=== PATIENT | female | born 1985 | race Caucasian/White ===

== ENCOUNTER 2021-09-01 12:09 | Emergency (ER) | payer OTHER ==
--- OUTSIDE RECORDS SUMMARY | 2021-09-01 12:12 | XMS REPORT | Continuity of Care Document ---
:1985 Author Organization [facility] t Address [address] [place] [address] Care Team Providers Name Role Phone Gregoria Shen Attending Clinician Unavailable Provider, Urgent Care Attending Clinician Unavailable Antwan Brewer Attending Clinician Antwan YOUNG Attending Clinician Unavailable EBRAHIM Attending Clinician Unavailable Ebrahinery SHAREPOINT TRAINER Attending Clinician Gregoria Shen Admitting Clinician Unavailable Payers Payer Name Policy Type Policy Number Effective Date Expiration Date S ource Problems Condition Condition Condition Status Onset Resolution Last Treating Co mments Source Name Details Category Date Date Treatment Clinician Date No known No known Disease Unive rs active active ity of problems problems [facility] Allergies, Adverse Reactions, Alerts Allergy Allergy Status Severity Reaction(s) Onset Inactive Treating Comm ents Source Name Type Date Date Clinician Penicill DA Active MO DIARRHEA [facility] [place] vicryl DA Active MO SWELLING 2020- [facility] 8-17 [facility] [place] Penicill DA Active MO [facility] ins 817 [facility] [place] Penicill DA Active MO 0 [facility] ins 3 [facility] [place] Penicill DA Active MO DIARRHEA [facility] ins 3 [facility] [place] PENICILL DRUG Active Med Unknown-Cmnt 2018-0 Un su IN G INGREDI 2-14 ity of 00:00: [place] 00 [facility] Penicill Drug Active Unknown - 2018-0 Unive rs in G Allergy See comments 2-14 ity of 00:00: [place] 00 [facility] NO KNOWN Drug Active Univers ALLERGIE Class ity of S [facility] Social History Social Habit Start Date Stop Date Quantity Comments Source ASSERTION 2020-06-03 [facility] 00:00:00 [facility] Exposure to Not sure [facility] SARS-CoV-2 (event) Medica l Branch Tobacco use and 2020-11-19 2020-11-19 Never used [facility] exposure 00:00:00 00:00:00 [facility] Sex Assigned At [birth year] [facility] 00:00:00 00:00:00 [facility] Smoking Status Start Date Stop Date Source Never smoker [facility] Medications Ordered Filled Start Stop Current Ordering Indication Dosage Frequency Signature Comments Components Source Medication Medication Date Date Medication? Clinician (SIG) Name Name No known No Univers medications [facility] No known No Univers medications [facility] Vital Signs Vital Name Observation Time Observation Value Comments Source Systolic blood 2020-11-19 16:45:00 124 mm[Hg] Univer sity [facility] Diastolic blood 2020-11-19 16:45:00 85 mm[Hg] [facility] Heart rate 2020-11-19 16:45:00 100 /min [facility] Body temperature 2020-11-19 16:45:00 37.17 Darleen [facility] Respiratory rate 2020-11-19 16:45:00 17 /min [facility] Body height 2020-11-19 16:45:00 157.5 cm [facility] Body weight 2020-11-19 16:45:00 63.504 kg [facility] BMI 2020-11-19 16:45:00 25.61 kg/m2 [facility] Oxygen saturation in 2020-11-19 16:45:00 99 /min [facility] Arterial blood by [facility] Pulse oximetry Branch Systolic blood 2020-05-10 19:53:00 128 mm[Hg] Univer sity of pressure [place] [facility] Diastolic blood 2020-05-10 19:53:00 88 mm[Hg] Unive rsity of pressure [place] [facility] Heart rate 2020-05-10 19:53:00 103 /min [facility] [place] [facility] Body temperature 2020-05-10 19:53:00 37.22 Darleen Univ ersity [facility] Respiratory rate 2020-05-10 19:53:00 18 /min Univ ersity of [facility] Body height 2020-05-10 19:53:00 157.5 cm [facility] [place] [facility] Body weight 2020-05-10 19:53:00 57.607 kg [facility] [place] [facility] BMI 2020-05-10 19:53:00 23.23 kg/m2 Universi ty of [facility] Oxygen saturation in 2020-05-10 19:53:00 98 /min University of Arterial blood by [place] [employer] gayathri Pulse oximetry Branch Systolic blood 2020-05-10 19:53:00 128 mm[Hg] Univer sity of pressure [facility] Diastolic blood 2020-05-10 19:53:00 88 mm[Hg] Unive rsity of pressure [place] [facility] Heart rate 2020-05-10 19:53:00 103 /min Universi ty of [facility] Body temperature 2020-05-10 19:53:00 37.22 Darleen Univ ersity of [place] [facility] Respiratory rate 2020-05-10 19:53:00 18 /min Univ ersity of [facility] Body height 2020-05-10 19:53:00 157.5 cm [facility]i ty [facility] [place] [facility] Body weight 2020-05-10 19:53:00 57.607 kg [facility] [place] [facility] BMI 2020-05-10 19:53:00 23.23 kg/m2 Universi ty of [facility] Oxygen saturation in 2020-05-10 19:53:00 98 /min University of Arterial blood by [employer] gayathri Pulse oximetry Branch Procedures Procedure Date / Time Performing Clinician Source Performed [id number] 2021-02-16 00:00:00 [facility] [id number] 2021-02-16 00:00:00 [facility] [id number] 2021-02-16 00:00:00 [facility] [place] COVID-19 (MOLECULAR 2020-11-19 16:53:00 Fidelia Young [facility] NUCLEIC ACID AMPLIFICATION) LAB ONLY COVID 2020-11-19 16:53:00 Fidelia Young [facility] Encounters Start End Encounter Admission Attending Care Care Encounter Source Date/Time Date/Time Type Type Clinicians Facility Department ID 2021-02-25 [facility] [id number] [facility] 14:56:00 [place], [id number] [facility] [place] 2020-10-17 Inpatient Nic [facility] PRANAV [id number] [facility] 11:58:00 [place], [id number] [facility] [place] 2020-09-06 Inpatient [facility] JUNAID [id number] [facility] 20:16:00 [id number] [facility] [place] 2021-02-16 2021-02-18 [facility] OBPP [id number] [facility] 18:05:00 13:31:00 [place], [id number] [facility] [place] 2020-11-19 2020-11-19 Urgent Provider, [facility] Urgent Care [facility] [id number] Univers 11:31:15 13:32:54 Fidelia Rueda [id number] [facility] [id number] Dao as Professio [phone] Vt [address] Office Building One 2020-11-19 2020-11-19 Outpatient R [facility] [id number] Univers 11:40:00 11:40:00 [id number] [facility] 2020-11-19 2020-11-19 Outpatient R YI [facility] [id number] Univers 11:40:00 11:40:00 [facility] 2020-05-10 2020-05-10 Outpatient R [facility] [id number] Univers 15:40:00 15:40:00 [id number] [facility] 2020-05-10 2020-05-10 Outpatient R STEVE [facility] [id number] Univers 15:40:00 15:40:00 [facility] 2020-05-10 2020-05-10 Urgent Provider, [facility] [id number] 13:40:39 14:00:39 [facility] [id number] Care [place] [id number] Professio [phone] [place] [address] Office [address] [facility] 2020-05-10 2020-05-10 Urgent Provider, Ang [facility] [id number] Univers 13:40:39 14:00:39 Care Ebrahim, [facility] [id number] ity of [place] [id number] Dao as Professio [phone] Vt dical [address] Office [facility] One 2020-05-10 2020-05-10 Outpatient R STVEE, [facility] [id number] Univers 13:40:00 13:40:00 [facility] Results Test Description Test Time Test Comments Results Result Comments Source PLACENTA THIRD TRIMESTER 2021-02-19 11:06:00 Test Item Value Reference Range Interpretation Comme nts PLACENTA RUN DATE: THIRD 02/19/21 [facility] PAGE 1 RUN TIME: 1756 TRIMESTER Specimen Inquiry RUN USER: INTERFACE (test code = PLACIII) PATIENT: CARLY OMALLEY LOC: RADHA U #: [id number] AGE/SX: 36/ F ROOM: [facility] RE02/16/21REG DR: Faraz Shen : 89 BED: A DIS: 02/18/21 STATUS: DIS IN TLOC: SPEC #: [id number] RECD: STATUS: LYNDA REEkaterina #: [id number] [place]: 02/16/21- SUBM DR: Faraz Shen MD ENTERED: 02/17/21 SP TYPE: PLACIII OTHR DR: Fina Marroquin MD ORDERED: LEVEL V SURGICA CODES: [id number] - PLACENTA, NOS COPIES TO: Fina Lira MD [address] [facility] [address] [place] [address] Faraz Shen MD [address] [facility] # [id number] [place], [place] [id number] PROCEDURES: LEVEL V SURGICA (Incomplete) TISSUES: PLACENTA, NOS - PLACENT A CLINICAL HISTORY 36 year old, 38.6 weeks, vaginal delivery, chorioamnionitis (wpd) FINAL DIAGNOSIS Placenta, vaginal delivery: - placenta with mature third trimester villo us morphology, 490 gms (approximately 50th percentile) - rare avascular hyalinized vi lli, suggestive of thrombotic vasculopathy - subchorionic and perivillous fibrin depositio n - acute chorionic vasculitis - membranes: acute chorioamnionitis - tr ivascular umbilical cord: acute vasculitis CPT: 04342 ssa/wpd CONTINUED ON NEXT PAGE RUN DATE: 02/19/21 [facility] PAGE 2 RUN TIME: 1755 Specimen Inquiry RUN USER: INTERFACE SPEC #: [id number] PATIENT: CARLY OMALLEY #[id number] (Continued) GROSS DESCRIPTION The specimen was received in a container, labeled with the patient's name, unit number and designated "placenta". The following attributes are observed: Cord insertion: 5 cm from m argin Cord length: 40 cm Number of vessels: 3 Cord color: Garcia-white Other cord findings: None surface findings: Blue-purple, wrinkled, glistening Vasculature: Unremarkable vasculature Membranes rupture site: 1 cm to margin Membrane color: Garcia-pink Other m embrane findings: Semi-translucent The trimmed placental weight: 490 gm Disk measureme nt: 19 x 16 x 3 cm Accessory lobes: 5 x 5 x 1 cm Maternal surface: Lobulated and focally disrupted, completeness charisse ot be determined Parenchyma: Red-brown and spongy Parenchyma lesions: None Cassettes: A1 through A4 tano/dolores 02/17/21 Signed Theodora Hurley 02/19/21 1106 END OF R EPORT CBC W/AUTO [id number] 08:15:00 Test Item Value Reference Range Interpretation Comments WHITE BLOOD CELL (test code = WBC) 15.4 K/mm3 6.5-12.3 H RED BLOOD CELL (test code = RBC) 3.40 M/mm3 3.51-4.69 L HEMOGLOBIN (test code = HGB) 9.4 g/dL 10.1-13.8 L HEMATOCRIT (test code = HCT) 29.8 % 32.5-41.8 L MEAN CELL VOLUME (test code = MCV) 87.6 fL 84.6-96.6 N MEAN CELL HGB (test code = MCH) 27.6 pg 27.3-33.9 N MEAN CELL HGB CONCETRATION (test 31.5 gm/dL 32.0-34.2 L code = MCHC) RED CELL DISTRIBUTION WIDTH (test 15.4 % 12.2-16.3 N code = RDW) PLATELET COUNT (test code = PLT) 220 K/mm3 134-363 N MEAN PLATELET VOLUME (test code = 9.6 fL 9.2-12.7 N MPV) NEUTROPHIL % (test code = NT%) 74.2 % 57.9-77.3 N LYMPHOCYTE % (test code = LY%) 14.0 % 14.5-29.7 L MONOCYTE % (test code = MO%) 10.0 % 3.6-10.2 N EOSINOPHIL % (test code = EO%) 0.6 % 0.0-3.0 N BASOPHIL % (test code = BA%) 0.3 % 0.1-0.9 N NEUTROPHIL # (test code = NT#) 11.5 K/mm3 LYMPHOCYTE # (test code = LY#) 2.2 K/mm3 MONOCYTE # (test code = MO#) 1.5 K/mm3 EOSINOPHIL # (test code = EO#) 0.10 K/mm3 BASOPHIL # (test code = BA#) 0.0 K/mm3 RBC MORPHOLOGY REQUIRED (test code NORMAL NORMAL = RBCM) PLATELET MORPHOLOGY REQUIRED (test NORMAL NORMAL code = PLTMR) PROTHROMBIN [id number] 23:23:00 Test Item Value Reference Range Interpretation Comments PROTHROMBIN TIME PATIENT (test code 12.0 secs 10.1-12.3 N = PTP) IS PATIENT ON ANTICOAGULANTS ? NINTERNATIONAL NORMAL [id number] 23:23:00 Test Item Value Reference Range Interpretation Comments INTERNATIONAL NORMAL 1.08 The INR is to be used RATIO (test code = INR) only for monitoring oral anticoagulantth erapy. INDICATION INR VALUE 1. Prophylaxis inc luding high risk domínguez rgery 2.0 - 2.52. Deep venous thr ombosis. Pulmonary em bolism. Atrial fibrilla tion or bioprostheti c heart valves 2.0 - 3.03. Mechanical hear t valves or recurren t systemic emboli sm. 3.0 - 3.5 IS PATIENT ON ANTICOAGULANTS ? NTHROMBOPLASTIN TIME [id number] 23:23:00 Test Item Value Reference Range Interpretation Comments THROMBOPLASTIN TIME PARTIAL (test 31.9 secs 22-38 N code = PTT) IS PATIENT ON ANTICOAGULANTS ? NCBC W/AUTO [id number] 23:15:00 Test Item Value Reference Range Interpretation Comments WHITE BLOOD CELL (test code = WBC) 14.4 K/mm3 6.5-12.3 H RED BLOOD CELL (test code = RBC) 3.73 M/mm3 3.51-4.69 N HEMOGLOBIN (test code = HGB) 10.3 g/dL 10.1-13.8 N HEMATOCRIT (test code = HCT) 31.9 % 32.5-41.8 L MEAN CELL VOLUME (test code = MCV) 85.5 fL 84.6-96.6 N MEAN CELL HGB (test code = MCH) 27.6 pg 27.3-33.9 N MEAN CELL HGB CONCETRATION (test 32.3 gm/dL 32.0-34.2 N code = MCHC) RED CELL DISTRIBUTION WIDTH (test 15.4 % 12.2-16.3 N code = RDW) PLATELET COUNT (test code = PLT) 239 K/mm3 134-363 N MEAN PLATELET VOLUME (test code = 9.6 fL 9.2-12.7 N MPV) NEUTROPHIL % (test code = NT%) 79.3 % 57.9-77.3 H LYMPHOCYTE % (test code = LY%) 10.2 % 14.5-29.7 L MONOCYTE % (test code = MO%) 7.5 % 3.6-10.2 N EOSINOPHIL % (test code = EO%) 0.8 % 0.0-3.0 N BASOPHIL % (test code = BA%) 0.3 % 0.1-0.9 N NEUTROPHIL # (test code = NT#) 11.4 K/mm3 LYMPHOCYTE # (test code = LY#) 1.5 K/mm3 MONOCYTE # (test code = MO#) 1.1 K/mm3 EOSINOPHIL # (test code = EO#) 0.12 K/mm3 BASOPHIL # (test code = BA#) 0.0 K/mm3 RBC MORPHOLOGY REQUIRED (test code NORMAL NORMAL = RBCM) PLATELET MORPHOLOGY REQUIRED (test NORMAL NORMAL code = PLTMR) UA RFLX MICR CULT IF [id number] 23:13:00 Test Item Value Reference Range Interpretation Comments UA COLOR (test code = COLU) YELLOW YELLOW UA APPEARANCE (test code = CLEAR CLEAR APPU) UA GLUCOSE DIPSTICK (test code NEGATIVE NEG = DGLUU) UA BILIRUBIN DIPSTICK (test NEGATIVE NEG code = BILU) UA KETONE DIPSTICK (test code NEGATIVE NEG = KETU) UA SPECIFIC GRAVITY (test code 1.015 1.001-1.035 N = SGU) UA BLOOD DIPSTICK (test code = 1+ NEG A LIZ) UA PH DIPSTICK (test code = 7.0 5-9 NATHALY) UA PROTEIN DIPSTICK (test code NEGATIVE NEG = PROU) UA UROBILINIOGEN DIPSTICK NEGATIVE mg/dL NEG (test code = URO) UA NITRITE DIPSTICK (test code NEG NEG = ARBEN) UA LEUKOCYTE ESTERASE DIPSTICK NEG NEG (test code = LEUU) UA WBC (test code = WBCU) 0-2 #/hpf NONE SEEN UA RBC (test code = RBCU) 6-10 #/hpf NONE SEEN A UA EPITHELIAL CELLS (test code RARE #/HPF RARE-FEW = EPIU) UA BACTERIA (test code = BACU) RARE /HPF RARE-FEW UA MUCUS (test code = MUCU) RARE NONE SEEN Indication for culture: Temperature > 100.4 FSpecimen Description: CATHETERLACTIC [id number] 23:12:00 Test Item Value Reference Range Interpretation Comments LACTIC ACID (test code = LACT) 1.0 MMOL/L 0.5-2.2 N COMPREHENSIVE METABOLIC [id number] 23:07:00 Test Item Value Reference Range Interpretation Comments SODIUM (test code = NA) 138 mEq/L 135-145 N POTASSIUM (test code = K) 4.1 mEq/L 3.5-5.0 N CHLORIDE (test code = CL) 106 mEq/L 100-115 N CARBON DIOXIDE (test code = CO2) 24 mEq/L 22-31 N ANION GAP (test code = GAP) 12.10 10-20 N GLUCOSE (test code = GLU) 100 mg/dL 65-110 N BLOOD UREA NITROGEN (test code = 9 mg/dL 7-18 N BUN) GLOMERULAR FILTRATION RATE (test 114 ml/min >60 N code = GFR) CREATININE (test code = CREAT) 0.6 mg/dL 0.5-1.0 N TOTAL PROTEIN (test code = PROT) 5.6 gm/dL 6.3-8.2 L ALBUMIN (test code = ALB) 2.5 gm/dL 3.4-4.8 L CALCIUM (test code = CA) 8.0 mg/dL 8.4-10.2 L BILIRUBIN TOTAL (test code = 0.2 mg/dL 0.2-1.0 N BILT) SGOT/AST (test code = AST) 17 units/L 15-37 N SGPT/ALT (test code = ALT) 13 units/L 12-78 N ALKALINE PHOSPHATASE TOTAL (test 937 units/L 46-116 H code = ALKP) AG HEPATITIS B [id number] 20:10:00 Test Item Value Reference Range Interpretation Comments AG HEPATITIS B SURFACE (test code NONREACTIVE NONREACTIVE = HBSAG) AB HEPATITIS C [id number] 20:10:00 Test Item Value Reference Range Interpretation Comments AB HEPATITIS C (test code = NONREACTIVE NONREACTIVE HCVAB) SIGNAL TO CUTOFF (test code = 0.02 <0.80 N CUTOFF) AB [id number] 20:10:00 Test Item Value Reference Range Interpretation Comments AB TREPONEMA (test code = TREPAB) NONREACTIVE NONREACTIVE AB HIV 1 20:10:00 Test Item Value Reference Range Interpretation Comments AB HIV 1 2 (test NONREACTIVE NONREACTIVE Done by [facility] code = [id number]) 4th Gen HIV Ag/Ab Combo Screen AG HEPATITIS B [id number] 19:51:00 Test Item Value Reference Range Interpretation Comments AG HEPATITIS B SURFACE (test code NONREACTIVE NONREACTIVE = HBSAG) AB HEPATITIS C [id number] 19:51:00 Test Item Value Reference Range Interpretation Comments AB HEPATITIS C (test code = HCVAB) NONREACTIVE SIGNAL TO CUTOFF (test code = CUTOFF) <0.80 AB [id number] 19:51:00 Test Item Value Reference Range Interpretation Comments AB TREPONEMA (test code = TREPAB) NONREACTIVE NONREACTIVE AB HIV 1 19:51:00 Test Item Value Reference Range Interpretation Comments AB HIV 1 2 (test code = [id number]) NONREACTIVE CBC W/AUTO [id number] 18:54:00 Test Item Value Reference Range Interpretation Comments WHITE BLOOD CELL (test code = WBC) 14.6 K/mm3 6.5-12.3 H RED BLOOD CELL (test code = RBC) 4.02 M/mm3 3.51-4.69 N HEMOGLOBIN (test code = HGB) 11.2 g/dL 10.1-13.8 N HEMATOCRIT (test code = HCT) 34.3 % 32.5-41.8 N MEAN CELL VOLUME (test code = MCV) 85.3 fL 84.6-96.6 N MEAN CELL HGB (test code = MCH) 27.9 pg 27.3-33.9 N MEAN CELL HGB CONCETRATION (test 32.7 gm/dL 32.0-34.2 N code = MCHC) RED CELL DISTRIBUTION WIDTH (test 15.2 % 12.2-16.3 N code = RDW) PLATELET COUNT (test code = PLT) 263 K/mm3 134-363 N MEAN PLATELET VOLUME (test code = 9.5 fL 9.2-12.7 N MPV) NEUTROPHIL % (test code = NT%) 74.7 % 57.9-77.3 N LYMPHOCYTE % (test code = LY%) 12.7 % 14.5-29.7 L MONOCYTE % (test code = MO%) 9.6 % 3.6-10.2 N EOSINOPHIL % (test code = EO%) 1.2 % 0.0-3.0 N BASOPHIL % (test code = BA%) 0.3 % 0.1-0.9 N NEUTROPHIL # (test code = NT#) 10.9 K/mm3 LYMPHOCYTE # (test code = LY#) 1.9 K/mm3 MONOCYTE # (test code = MO#) 1.4 K/mm3 EOSINOPHIL # (test code = EO#) 0.17 K/mm3 BASOPHIL # (test code = BA#) 0.0 K/mm3 RBC MORPHOLOGY REQUIRED (test code NORMAL NORMAL = RBCM) PLATELET MORPHOLOGY REQUIRED (test NORMAL NORMAL code = PLTMR) COVID 19 Asymptomatic IH [id number] 18:34:00 Test Item Value Reference Range Interpretation Comments COVID 19 NEGATIVE NEGATIVE This test has b een Asymptomatic IH AG authorize d only for the (test code = detection ofpro teins from COVNONPUIAG) SARS-CoV-2, not for any other viruses orpathogens. N egative results should be treated as presumptive andconfirmed wi th a molecular assay , if necessary for patientmanageme nt. Negative result s do not rule out COVID- 19 andshould not b e used as the sole basis for treatment orpat ient management deci sions, including infec tion controldecision s. Negative result s should be considered i n thecontext of a patient's recent exposure s, history and thepresence of clinical signs and symptoms consis tent withCOVID-19. T his test has not been FD A cleared or approved; th e test hasbeen authori zed by FDA under an Emerge ncy Use Authorization(E UA) for use by aspen mari certified under the CLIA thatmeet the re quirements to perform mode rate, high or waivedcomple xity tests. This carmen t is authorized for use at thePoint of Car e (POC), i.e., in patien t care settingsoperati ng under a CLIA Certificat e of Waiver, Certifi frankie ofCompliance, o r Certificate of Accreditation. This test is only authori helen for the duration of thedeclaration that circumstances e xist justifying theauthorizatio n of emergency use o f in vitro diagnostic test sfor detection and/o r diagnosis of CO VID-19 under Upzboai97 4(b)(1) of the Act, 21 U.S .C. 360bbb-3(b)(1), unless theauthorizatio n is terminated or r evoked sooner. LAB ONLY COVID [id number] 23:38:30COVID DMT InterpretationInterpretation/Recommendations: Molecular NAAT Tests for Active Infection with the SARS-CoV-2 Virus: The patient has currently tested negative for the SARS-CoV-2 virus that causes COVID-19 illness. This most likely indicates that the patient does not have an active infection with the SARS-CoV-2 virus. However, infection is not completely ruled out as the false negative rate for molecular NAAT testing using a nasopharyngeal sample can be up to 30%, mostly dependent on the timing of sample collection in relation to illness onset and any deficiencies in sampling techniques. If the patient has symptoms concerning for COVID-19 illness, a repeat NAAT test (PCR, Rapid ID Now, etc.) should be performed, at which time the SARS-CoV-2 virus - if present - may have reached a detectable viral load (usually peaking by the end of the first week of symptoms). Tests for IgM and/or IgGAntibodies to the SARS-CoV-2 Virus: If the patient develops COVID-19 illness in the future, testingfor IgM and IgG antibodies approximately 3 weeks after illness onset will likely indicate if the patient has produced antibodies to the SARS-CoV-2 virus. However, some patients may take longer to develop detectable antibodies, while some patients who were infected with SARS-CoV-2 may never develop antibodies. While antibodies to SARS-CoV-2 may provide some degree of immunity, at this time the strength and duration of the antibody response is unknown. Interpretation Result Comments:These interpretation comments are based upon all COVID-19 testing the patient has had at [facility], including molecular NAAT testing (more commonly known as PCR testing and Rapid ID Now testing) and antibody testing. It does not take into account any testing that a patient has had outside of the [facility] medical record. [facility] LABORATORY SERVICESCOVID Resu ingHGVS-XyE-0 NAAT (no units) ? ? Date ? Value ? 11/19/2020 ? Not Detected ? ? ? 05/10/2020 ? Not Detected ? [facility]Un[facility] COVID-19 (MOLECULAR TESTING NUCLEIC ACID AMPLIFICATION)2020-11-20 00:41:37 Test Item Value Reference Range Interpretation Comments SARS-CoV-2 NAAT (test Not Detected Not Detected code = 76058-4) KATARZYNA (test code = KATARZYNA) [employer] Fusion SARS-CoV-2 Assay is a real-time RT-PCR test intended for the qualitative detection of RNA from SARS-CoV-2 from nasopharyngeal ([employer]) specimens. It is used under Emergency Use Authorization (EUA) by FDA. A positive result is indicative of the presence of SARS-CoV-2 RNA. ?Clinical correlation with patient history and other diagnostic information is necessary to determine patient infection status. A negative (Not Detected) result does not preclude SARS-CoV-2 infection. Clinical correlation with patient history and other diagnostic information should be used in patient management decisions. Invalid: Please collect a new specimen for repeat patient testing if clinically indicated. Lab Interpretation Normal (test code = 02976-1) [facility] [id number] 13:10:00 Test Item Value Reference Range Interpretation Comments SODIUM (test code = NA) 132 mEq/L 135-145 L POTASSIUM (test code = K) 3.8 mEq/L 3.5-5.0 N CHLORIDE (test code = CL) 100 mEq/L 100-115 N CARBON DIOXIDE (test code = CO2) 24 mEq/L 22-31 N ANION GAP (test code = GAP) 11.50 10-20 N GLUCOSE (test code = GLU) 77 mg/dL 65-110 N BLOOD UREA NITROGEN (test code = 11 mg/dL 7-18 N BUN) GLOMERULAR FILTRATION RATE (test 142 ml/min >60 N code = GFR) CREATININE (test code = CREAT) 0.5 mg/dL 0.5-1.0 N TOTAL PROTEIN (test code = PROT) 6.4 gm/dL 6.3-8.2 N ALBUMIN (test code = ALB) 2.9 gm/dL 3.4-4.8 L CALCIUM (test code = CA) 8.1 mg/dL 8.4-10.2 L BILIRUBIN TOTAL (test code = BILT) 0.4 mg/dL 0.2-1.0 N SGOT/AST (test code = AST) 19 units/L 15-37 N SGPT/ALT (test code = ALT) 17 units/L 12-78 N ALKALINE PHOSPHATASE TOTAL (test 78 units/L 46-116 N code = ALKP) CBC W/AUTO [id number] 12:55:00 Test Item Value Reference Range Interpretation Comments WHITE BLOOD CELL (test code = WBC) 10.8 K/mm3 6.5-12.3 N RED BLOOD CELL (test code = RBC) 4.11 M/mm3 3.51-4.69 N HEMOGLOBIN (test code = HGB) 12.2 g/dL 10.1-13.8 N HEMATOCRIT (test code = HCT) 37.1 % 32.5-41.8 N MEAN CELL VOLUME (test code = MCV) 90.3 fL 84.6-96.6 N MEAN CELL HGB (test code = MCH) 29.7 pg 27.3-33.9 N MEAN CELL HGB CONCETRATION (test 32.9 gm/dL 32.0-34.2 N code = MCHC) RED CELL DISTRIBUTION WIDTH (test 13.5 % 12.2-16.3 N code = RDW) PLATELET COUNT (test code = PLT) 273 K/mm3 134-363 N MEAN PLATELET VOLUME (test code = 9.3 fL 9.2-12.7 N MPV) NEUTROPHIL % (test code = NT%) 88.8 % 57.9-77.3 H LYMPHOCYTE % (test code = LY%) 5.6 % 14.5-29.7 L MONOCYTE % (test code = MO%) 4.4 % 3.6-10.2 N EOSINOPHIL % (test code = EO%) 0.5 % 0.0-3.0 N BASOPHIL % (test code = BA%) 0.2 % 0.1-0.9 N NEUTROPHIL # (test code = NT#) 9.6 K/mm3 LYMPHOCYTE # (test code = LY#) 0.6 K/mm3 MONOCYTE # (test code = MO#) 0.5 K/mm3 EOSINOPHIL # (test code = EO#) 0.05 K/mm3 BASOPHIL # (test code = BA#) 0.0 K/mm3 RBC MORPHOLOGY REQUIRED (test code NORMAL NORMAL = RBCM) PLATELET MORPHOLOGY REQUIRED (test NORMAL NORMAL code = PLTMR) UA RFLX MICR CULT IF [id number] 22:05:00 Test Item Value Reference Range Interpretation Comments UA COLOR (test code = COLU) YELLOW YELLOW UA APPEARANCE (test code = CLEAR CLEAR APPU) UA GLUCOSE DIPSTICK (test 3+ NEG A code = DGLUU) UA BILIRUBIN DIPSTICK (test NEGATIVE NEG code = BILU) UA KETONE DIPSTICK (test code 1+ NEG A = KETU) UA SPECIFIC GRAVITY (test 1.009 1.001-1.035 N code = SGU) UA BLOOD DIPSTICK (test code NEG NEG = LIZ) UA PH DIPSTICK (test code = 6.0 5-9 NATHALY) UA PROTEIN DIPSTICK (test NEGATIVE NEG code = PROU) UA UROBILINIOGEN DIPSTICK NEGATIVE mg/dL NEG (test code = URO) UA NITRITE DIPSTICK (test NEG NEG code = ARBEN) UA LEUKOCYTE ESTERASE NEG NEG DIPSTICK (test code = LEUU) UA WBC (test code = WBCU) 0-2 #/hpf NONE SEEN UA RBC (test code = RBCU) NONE SEEN #/hpf NONE SEEN UA EPITHELIAL CELLS (test RARE #/HPF RARE-FEW code = EPIU) UA BACTERIA (test code = RARE /HPF RARE-FEW BACU) UA MUCUS (test code = MUCU) RARE NONE SEEN Indication for culture: Dysuria/FrequencySpecimen Description: CLEAN CATCH HCG [id number] 21:29:00 Test Item Value Reference Range Interpretation Comments HCG SERUM (test 17591 INTERPRETATI ON:VALUES BETWEEN code = HCG) 15-20 milliInte rnational units/mL NEED T O BERETESTED WITHIN 48 HOURS . All units for these ranges ar e in milliInternatio nalunits/mL0-1 WK AFTER CONCEP TION 0-50 1-2 W KS AFTER CONCEPTION 40-3002-3 WKS A FTER CONCEPTION 100-1 ,0003-4 WKS AFTER CONCEPTIO N 500-6,0001-2 MO NTHS AFTER CONCEPTION 5,000-200,0002- 3 MONTHS AFTER CONCEPTION 10,000-100,0002 ND TRIMESTER 3,000-50,0003RD TRIMESTER 1 ,000-50,000 SPECIMENS WITH AN HCG LEVEL FROM 0-6 milliInternatio nalunits/mL SHOULD BE CONSI DERED NEGATIVE COMPREHENSIVE METABOLIC [id number] 21:14:00 Test Item Value Reference Range Interpretation Comments SODIUM (test code = NA) 135 mEq/L 135-145 N POTASSIUM (test code = K) 3.8 mEq/L 3.5-5.0 N CHLORIDE (test code = CL) 100 mEq/L 100-115 N CARBON DIOXIDE (test code = CO2) 22 mEq/L 22-31 N ANION GAP (test code = GAP) 16.70 10-20 N GLUCOSE (test code = GLU) 85 mg/dL 65-110 N BLOOD UREA NITROGEN (test code = 9 mg/dL 7-18 N BUN) GLOMERULAR FILTRATION RATE (test 115 ml/min >60 N code = GFR) CREATININE (test code = CREAT) 0.6 mg/dL 0.5-1.0 N TOTAL PROTEIN (test code = PROT) 7.4 gm/dL 6.3-8.2 N ALBUMIN (test code = ALB) 3.4 gm/dL 3.4-4.8 N CALCIUM (test code = CA) 8.5 mg/dL 8.4-10.2 N BILIRUBIN TOTAL (test code = BILT) 0.4 mg/dL 0.2-1.0 N SGOT/AST (test code = AST) 20 units/L 15-37 N SGPT/ALT (test code = ALT) 30 units/L 12-78 N ALKALINE PHOSPHATASE TOTAL (test 46 units/L 46-116 N code = ALKP) CBC W/AUTO [id number] 20:47:00 Test Item Value Reference Range Interpretation Comments WHITE BLOOD CELL (test code = WBC) 8.7 K/mm3 6.5-12.3 N RED BLOOD CELL (test code = RBC) 4.47 M/mm3 3.51-4.69 N HEMOGLOBIN (test code = HGB) 13.5 g/dL 10.1-13.8 N HEMATOCRIT (test code = HCT) 39.6 % 32.5-41.8 N MEAN CELL VOLUME (test code = MCV) 88.6 fL 84.6-96.6 N MEAN CELL HGB (test code = MCH) 30.2 pg 27.3-33.9 N MEAN CELL HGB CONCETRATION (test 34.1 gm/dL 32.0-34.2 N code = MCHC) RED CELL DISTRIBUTION WIDTH (test 13.1 % 12.2-16.3 N code = RDW) PLATELET COUNT (test code = PLT) 274 K/mm3 134-363 N MEAN PLATELET VOLUME (test code = 9.2 fL 9.2-12.7 N MPV) NEUTROPHIL % (test code = NT%) 88.2 % 57.9-77.3 H LYMPHOCYTE % (test code = LY%) 6.7 % 14.5-29.7 L MONOCYTE % (test code = MO%) 4.3 % 3.6-10.2 N EOSINOPHIL % (test code = EO%) 0.3 % 0.0-3.0 N BASOPHIL % (test code = BA%) 0.2 % 0.1-0.9 N NEUTROPHIL # (test code = NT#) 7.6 K/mm3 LYMPHOCYTE # (test code = LY#) 0.6 K/mm3 MONOCYTE # (test code = MO#) 0.4 K/mm3 EOSINOPHIL # (test code = EO#) 0.03 K/mm3 BASOPHIL # (test code = BA#) 0.0 K/mm3 PLATELET MORPHOLOGY REQUIRED (test NORMAL NORMAL code = PLTMR) PLACENTA THIRD [id number] 17:53:00 RUN DATE: 09/05/18 [facility] PAGE 1 RUN TIME: 1922 Specimen Inquiry RUN USER: INTERFACE PATIENT: CARLY OMALLEY [facility] #: [id number] AGE/SX: ROOM: 2007 RE09/02/18REG DR: Faraz Shen : 89 BED: A DIS: 09/05/18 STATUS: DIS IN TLOC: SPEC #: [id number] RECD: 09/03/18 STATUS: SOUJuan C REQ #: [id number] MILTON: 09/03/18- SUBM DR: Faraz Shen MD ENTERED: 09/03/18 SP TYPE: PLACIII OTHR DR: Tonay Coronel MD ORDERED: LEVEL V SURGICA CODES: [id number] - PLACENTA, NOS COPIES TO: Tonya Coronel MD [address] [place] [address] Faraz Shen MD [address] [facility] [address] [place], [place] [id number] PROCEDURES: LEVEL V SURGICA(Incomplete) TISSUES: PLACENTA, NOS - PLACENTA CLINICAL HISTORY 33 year old, IUP @ 39.5 weeks, [id number], vaginal delivery, non-reassuring monitoring, meconium (kr) FINAL DIAGNOSIS Placenta, 39.5 weeks gestational age, vaginal delivery: - third trimesterplacenta, 360 gms (5th percentile) with focal chronic basal villitis (low-grade) and meconium macrophages within membranes - membranes and trivascular umbilical cord free of inflammation Tissue code 1 CPT code(s): 18081 [facility] 09/05/18 CONTINUED ON NEXT PAGE RUN DATE: 09/05/18 [facility] PAGE 2 RUN TIME: 1922 Specimen Inquiry RUN USER: INTERFACE SPEC #: [id number] PATIENT: LENORACARLY #[id number] (Continued) GROSS DESCRIPTION The specimen was received in a container, labeled with the patient's name, unit number and designated "placenta". The following attributes are observed: Cord insertion: 7 cm from margin Cord length: 22 cm Number of vessels: 3 Cord color: Garcia Other cord findings: Slightly edematous surface findings: Steel blue, wrinkled, glistening Vasculature: Displays unremarkable blood vasculature Membranes rupture site: 3 cm to margin Membrane color: Garcia Other membrane findings: Slightly thickened The trimmed placental weight: 360 gm Disk measurement: 16.5 cm in greatest dimension Accessory lobes: None Maternal surface: Lobulated and intact Parenchyma: Red, beefy, and spongy with peripheral fibrosis and calcifications Parenchyma lesions: There is no definite meconium staining. Cassettes: A through D jm/wpd 09/04/18 @ 2790 MICROSCOPIC DESCRIPTION The trivascular umbilical cord and membranes are free of inflammation. There is amniotic epithelial hyperplasia and several meconium macrophages are seen. The placental villi have a third trimester morphology and there is focal basal villitis. No decidual vasculopathy identified. [facility] 09/05/18--------- --- Signed Vandana South MD 09/05/18 1753 END OF REPORT HGB [id number] 07:57:00 Test Item Value Reference Range Interpretation Comments HEMOGLOBIN (test code = HGB) 11.5 g/dL 10.7-13.9 N HEMATOCRIT (test code = HCT) 35.6 % 32.1-42.1 N CAPILLARY BLOOD [id number] 03:24:00 Test Item Value Reference Range Interpretation Comments CAPILLARY BLOOD GAS PH (test code 7.333 7.35-7.45 L = PHC) CAPILLARY BLOOD GAS PCO2 (test 38.3 mmHg code = PCO2C) CAPILLARY BLOOD GAS PO2 (test code 29.7 mmHg = PO2C) CBG HCO3 (test code = HCO3C) 19.9 meq/L CBG BASE EXCESS (test code = BEC) -5.4 CBG O2 SATURATION (test code = 52.7 % SATC) CAPILLARY BLOOD GAS TYPE (test CBLV code = TYPEC) CAPILLARY BLOOD GAS FIO2 (test 21.0 % code = FIO2C) CAPILLARY BLOOD [id number] 03:24:00 Test Item Value Reference Range Interpretation Comments CAPILLARY BLOOD GAS PH (test code 7.089 7.35-7.45 LL = PHC) CAPILLARY BLOOD GAS PCO2 (test 80.1 mmHg code = PCO2C) CAPILLARY BLOOD GAS PO2 (test code 20.1 mmHg = PO2C) CBG HCO3 (test code = HCO3C) 23.7 meq/L CBG BASE EXCESS (test code = BEC) -8.0 CBG O2 SATURATION (test code = 18.9 % SATC) CAPILLARY BLOOD GAS TYPE (test CBLA code = TYPEC) CAPILLARY BLOOD GAS FIO2 (test 21.0 % code = FIO2C) AG HEPATITIS B [id number] 11:58:00 Test Item Value Reference Range Interpretation Comments AG HEPATITIS B SURFACE (test code NONREACTIVE NONREACTIVE = HBSAG) AB HEPATITIS C [id number] 11:58:00 Test Item Value Reference Range Interpretation Comments AB HEPATITIS C (test code = NONREACTIVE NONREACTIVE HCVAB) SIGNAL TO CUTOFF (test code = 0.04 <0.80 N CUTOFF) AB [id number] 11:58:00 Test Item Value Reference Range Interpretation Comments AB TREPONEMA (test code = TREPAB) NONREACTIVE NONREACTIVE AG HEPATITIS B [id number] 11:31:00 Test Item Value Reference Range Interpretation Comments AG HEPATITIS B SURFACE (test code NONREACTIVE NONREACTIVE = HBSAG) AB HEPATITIS C [id number] 11:31:00 Test Item Value Reference Range Interpretation Comments AB HEPATITIS C (test code = HCVAB) NONREACTIVE SIGNAL TO CUTOFF (test code = CUTOFF) <0.80 AB [id number] 11:31:00 Test Item Value Reference Range Interpretation Comments AB TREPONEMA (test code = TREPAB) NONREACTIVE NONREACTIVE CBC W/AUTO [id number] 10:49:00 Test Item Value Reference Range Interpretation Comments WHITE BLOOD CELL (test code = WBC) 10.2 K/mm3 6.6-12.1 N RED BLOOD CELL (test code = RBC) 4.13 M/mm3 3.45-5.01 N HEMOGLOBIN (test code = HGB) 12.0 g/dL 10.7-13.9 N HEMATOCRIT (test code = HCT) 37.5 % 32.1-42.1 N MEAN CELL VOLUME (test code = MCV) 91 fL 84.1-94.8 N MEAN CELL HGB (test code = MCH) 29.1 pg 27-35 N MEAN CELL HGB CONCETRATION (test 32.0 gm/dL 32.2-34.1 L code = MCHC) RED CELL DISTRIBUTION WIDTH (test 15.2 % 12.4-16.5 N code = RDW) PLATELET COUNT (test code = PLT) 280 K/mm3 133-385 N IMMATURE PLATELET FRACTION (test 0.0 % 0.0-10.8 N code = IPF) MEAN PLATELET VOLUME (test code = 10.2 fl 9.1-12.7 N MPV) NEUTROPHIL % (test code = NT%) 73.9 % 56.5-79.4 N LYMPHOCYTE % (test code = LY%) 15.5 % 14.3-34.3 N MONOCYTE % (test code = MO%) 7.8 % 5.1-10.4 N EOSINOPHIL % (test code = EO%) 1.0 % 0.1-3.0 N BASOPHIL % (test code = BA%) 0.3 % 0.1-1.0 N NEUTROPHIL # (test code = NT#) 7.6 K/mm3 LYMPHOCYTE # (test code = LY#) 1.6 K/mm3 MONOCYTE # (test code = MO#) 0.8 K/mm3 EOSINOPHIL # (test code = EO#) 0.10 K/mm3 BASOPHIL # (test code = BA#) 0.0 K/mm3 RBC MORPHOLOGY REQUIRED (test code NORMAL NORMAL = RBCM) PLATELET MORPHOLOGY REQUIRED (test NORMAL NORMAL code = PLTMR)
[2021-09-01 13:35] LABS: Urine Blood Negative (Negative); Urine Glucose Negative (Negative); Urine Protein Negative (Negative); Urine Specific Gravity 1.015 (1.005-1.030)
[2021-09-01] MEDS ORDERED: DIAZEPAM 5 MG TABLET ONE (13:41)
[2021-09-01 13:52] LABS: Urine Specific Gravity/Preg 1.015 (1.005-1.030)
[2021-09-01 13:59] LABS: Protime INR 0.95
[2021-09-01 14:00] LABS: Hematocrit 39.2 % (36.0-45.0); Lymphocytes % 30.1 % (15.3-44.8); MPV 7.5 fL (7.6-11.3); RBC Red Blood Cell Count 4.53 M/uL (3.86-4.86)
--- NOTE | 2021-09-01 14:01 | RAD REPORT ---
EXAM DESCRIPTION: RAD - Chest Single View - 09/01/2021 1:55 pm CLINICAL HISTORY: CHEST PAIN Chest pain. COMPARISON: Abdomen 1 View (KUB) dated 01/13/2020; Abdomen 1 View (KUB) dated 01/30/2017; Chest Pa And Lat (2 Views) dated 02/29/2016; Abdomen 1 View (KUB) dated 02/05/2016 FINDINGS: Portable technique limits examination quality. The lungs are grossly clear. The heart is normal in size. No displaced fractures. IMPRESSION: No acute intrathoracic process suspected.
[2021-09-01 14:14] LABS: ALT/SGPT 19 U/L (12-78); AST/SGOT 15 U/L (15-37); Albumin 3.6 g/dL (3.4-5.0); Alkaline Phosphatase 43 U/L (45-117); BUN Blood Urea Nitrogen 13 mg/dL (7-18); Bicarbonate 28 mmol/L (21-32); Bilirubin Total 0.2 mg/dL (0.2-1.0); Glucose Level 91 mg/dL (74-106); Magnesium 2.2 mg/dL (1.8-2.4); NT PRO-BNP 77 pg/mL (<125); Potassium 4.2 mmol/L (3.5-5.1); Protein, Total 7.7 g/dL (6.4-8.2); Sodium Level 137 mmol/L (136-145)
[2021-09-01 14:19] LABS: Bilirubin Direct < 0.1 mg/dL (0-0.2)
--- NOTE | 2021-09-01 15:11 | EDPHYS ---
Physician Documentation [facility] Name: Rebecca Cooley Age: 36 yrs Sex: Female : 1985 Arrival Date: 09/01/2021 Time: 12:12 Bed 24 Private MD: ED Physician Chandler Canales HPI: 09/01 14:41 This 36 yrs old Female presents to ER via Ambulatory with complaints of Chest Pain. pm1 14:41 The patient or guardian reports chest pain that is located primarily in the mid-sternal pm1 area. The pain does not radiate. 14:41 Associated signs and symptoms: Pertinent negatives: abdominal pain, cough, dizziness, pm1 headache, nausea, shortness of breath, vomiting. The chest pain is described as a pressure. Duration: The patient or guardian reports a single episode, that is still ongoing. Modifying factors: The symptoms are alleviated by nothing. the symptoms are aggravated by nothing. The patient has experienced similar episodes in the past, a few times, today's symptoms are similar, to previous anxiety attacks but feels different now that she is taking prozac. The patient has been recently seen by a physician: a psychiatrist. OFFICE REP: 13:08 LMP 08/10/2021 jg9 Historical: - Allergies: 13:07 PENICILLINS; jg9 - Home Meds: 13:36 Ortho Tri-Cyclen (28) Oral [Active]; Vyvanse Oral [Active]; Xanax Oral [Active]; lr4 - PMHx: 13:07 ADD/ADHD; ibs; jg9 13:36 Anxiety; Depressive disorder; lr4 - Immunization history:: Adult Immunizations up to date. - Social history:: Smoking status: Patient denies any tobacco usage or history of. ROS: 14:41 Constitutional: Negative for fever, chills, and weight loss, Respiratory: Negative for pm1 shortness of breath, cough, wheezing, and pleuritic chest pain. 14:41 Abdomen/GI: Negative for abdominal pain, nausea, vomiting, diarrhea, and constipation, Back: Negative for injury and pain, MS/Extremity: Negative for injury and deformity, Skin: Negative for injury, rash, and discoloration, Neuro: Negative for headache, weakness, numbness, tingling, and seizure. 14:41 Cardiovascular: Positive for chest pain, Negative for edema, palpitations. 14:41 All other systems are negative. Exam: 14:41 Constitutional: This is a well developed, well nourished patient who is awake, alert, pm1 and in no acute distress. Head/Face: Normocephalic, atraumatic. 14:41 Abdomen/GI: Soft, non-tender, with normal bowel sounds. No distension or tympany. No guarding or rebound. No evidence of tenderness throughout. Back: No spinal tenderness. No costovertebral tenderness. Full range of motion. Skin: Warm, dry with normal turgor. Normal color with no rashes, no lesions, and no evidence of cellulitis. MS/ Extremity: Pulses equal, no cyanosis. Neurovascular intact. Full, normal range of motion. 14:41 Cardiovascular: Exam negative for acute changes, Rate: normal, Rhythm: regular, Pulses: no pulse deficits are appreciated. 14:41 Respiratory: Exam negative for acute changes, respiratory distress, shortness of breath. 14:41 Neuro: Exam negative for acute changes, Orientation: is normal, Mentation: is normal, Motor: moves all fours. Vital Signs: 13:02 BP 178 / 117; Pulse 88; Resp 18 S; Temp 98.3(TE); Pulse Ox 100% on R/A; Weight 56.7 kg; jg9 Height 5 ft. 2 in. (157.48 cm) (R); 14:11 BP 139 / 109; Pulse 87; Resp 18; Pulse Ox 100% on R/A; lr4 14:39 BP 135 / 99; Pulse 76; Resp 16; Pulse Ox 100% on R/A; lr4 13:02 Body Mass Index 22.86 (56.70 kg, 157.48 cm) jg9 MDM: 13:24 Patient medically screened. pm1 15:10 Data reviewed: vital signs. Data interpreted: Pulse oximetry: on room air is 100 %. pm1 Interpretation: normal. 15:10 Counseling: I had a detailed discussion with the patient and/or guardian regarding: the pm1 historical points, exam findings, and any diagnostic results supporting the discharge/admit diagnosis, lab results, radiology results, the need for outpatient follow up, to return to the emergency department if symptoms worsen or persist or if there are any questions or concerns that arise at home. 15:16 ED course: Valium given in the ER improved her blood pressure. Patient's elevated blood pm1 pressure likely a result of anxiety. Discussed with patient she will need to follow up with psychiatry to further manage her anxiety and possibly PCP if her blood pressure continues to be elevated. 09/01 13:25 Order name: Basic Metabolic Panel pm1 09/01 13:25 Order name: CBC with Diff pm1 09/01 13:25 Order name: LFT's; Complete Time: 14:24 pm1 09/01 13:25 Order name: Magnesium; Complete Time: 14:24 pm1 09/01 13:25 Order name: NT PRO-BNP; Complete Time: 14:24 pm1 09/01 13:25 Order name: PT-INR; Complete Time: 14:24 pm1 09/01 13:25 Order name: Troponin HS; Complete Time: 14:24 pm1 09/01 13:25 Order name: XRAY Chest (1 view); Complete Time: 14:24 pm1 09/01 13:25 Order name: EKG; Complete Time: 13:26 pm1 09/01 13:25 Order name: Basic Metabolic Panel; Complete Time: 14:24 EDMS 09/01 13:25 Order name: CBC with Automated Diff; Complete Time: 14:24 EDMS 09/01 13:35 Order name: Urine Dipstick-Ancillary; Complete Time: 14:24 EDMS 09/01 13:38 Order name: Urine --Ancillary (enter results); Complete Time: 14:24 bd 09/01 13:25 Order name: Cardiac monitoring; Complete Time: 13:35 pm1 09/01 13:25 Order name: EKG - Nurse/Tech; Complete Time: 13:35 pm1 09/01 13:25 Order name: IV Saline Lock; Complete Time: 13:35 pm1 09/01 13:25 Order name: Labs collected and sent; Complete Time: 13:35 pm1 09/01 13:25 Order name: O2 Per Protocol; Complete Time: 13:35 pm1 09/01 13:25 Order name: O2 Sat Monitoring; Complete Time: 13:35 pm1 09/01 13:25 Order name: Urine Dipstick-Ancillary (obtain specimen); Complete Time: 13:35 pm1 09/01 13:25 Order name: Urine Test (obtain specimen); Complete Time: 13:34 pm1 Administered Medications: 13:40 Drug: Valium (diazepam) 5 mg Route: PO; lr4 Disposition Summary: 09/01/21 15:10 Discharge Ordered Location: Home pm1 Problem: new pm1 Symptoms: have improved pm1 Condition: Stable pm1 Diagnosis - Chest pain, unspecified pm1 Followup: pm1 - With: Emergency Department - When: As needed - Reason: Worsening of condition Followup: pm1 - With: Private Physician - When: 2 - 3 days - Reason: Recheck today's complaints, Continuance of care, Re-evaluation by your physician Discharge Instructions: - Discharge Summary Sheet pm1 - Nonspecific Chest Pain, Adult pm1 Forms: - Medication Reconciliation Form pm1 - Thank You Letter pm1 - Antibiotic Education pm1 - Prescription Opioid Use pm1 Signatures: Dispatcher [employer] EDBryson Greenberg NP RETAIL AREA MANAGER pm1 Nallely Franz RN RN jg9 Christy Carter RN RN lr4
--- NOTE | 2021-09-01 15:11 | ER ---
Nurse's Notes [facility] Name: Rebecca Cooley Age: 36 yrs Sex: Female : 1985 Arrival Date: 09/01/2021 Time: 12:12 Bed 24 Private MD: Diagnosis: Chest pain, unspecified Presentation: 09/01 13:02 Chief complaint: Patient states: I am having chest pressure 4/10 that is worse with jg9 breathing. Yesterday my blood pressure was very high so I so I called my psychiatrist who advised me to take a Xanax on yesterday to see if it helped. I have continued to have problems with my blood pressure and I thought it may be my anxiety but I was diagnosed with bronchitis on Monday by my PCP and she wanted me to come in to have a cardiac work-up. Coronavirus screen: Vaccine status: Patient reports receiving the 2nd dose of the covid vaccine. Ebola Screen: Patient negative for fever greater than or equal to 101.5 degrees Fahrenheit, and additional compatible Ebola Virus Disease symptoms Patient denies exposure to infectious person. Patient denies travel to an Ebola-affected area in the 21 days before illness onset. Initial Sepsis Screen: Does the patient meet any 2 criteria? No. Patient's initial sepsis screen is negative. Does the patient have a suspected source of infection? No. Patient's initial sepsis screen is negative. Risk Assessment: Do you want to hurt yourself or someone else? Patient reports no desire to harm self or others. 13:02 Method Of Arrival: Ambulatory [facility] 13:02 Acuity: JYOTI 3 9 13:08 Onset of symptoms was July 30, 2021. j9 Triage Assessment: 13:07 General: Appears in no apparent distress. Behavior is calm, cooperative. Pain: Denies j9 pain. Cardiovascular: Reports intermittent chest pain since Monday, currently pain free. 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 - Social history:: Smoking status: Patient denies any tobacco usage or history of. Screenin:08 Abuse screen: Denies threats or abuse. Denies injuries from another. Nutritional jg9 screening: No deficits noted. Tuberculosis screening: No symptoms or risk factors identified. Fall Risk None identified. Assessment: 13:09 Pain: Pain does not radiate. Pain began gradually. jg9 13:44 General: Appears in no apparent distress. comfortable, Behavior is calm, cooperative. lr4 Neuro: No deficits noted. Cardiovascular: No deficits noted. Chest pain is described as vague, quality is squeezing, is located in chest wall began 3 days ago episodes are intermittent. Respiratory: Reports shortness of breath cough that is. 14:39 Reassessment: Patient states feeling better. Patient states symptoms have improved. Pt lr4 states cp has resolved since valium . Vital Signs: 13:02 BP 178 / 117; Pulse 88; Resp 18 S; Temp 98.3(TE); Pulse Ox 100% on R/A; Weight 56.7 kg; jg9 Height 5 ft. 2 in. (157.48 cm) (R); 14:11 BP 139 / 109; Pulse 87; Resp 18; Pulse Ox 100% on R/A; lr4 14:39 BP 135 / 99; Pulse 76; Resp 16; Pulse Ox 100% on R/A; lr4 13:02 Body Mass Index 22.86 (56.70 kg, 157.48 cm) jg9 ED Course: 12:12 Patient arrived in ED. ds1 12:24 Bryson Vazquez NP is PHCP. pm1 12:24 Chandler Canales MD is Attending Physician. pm1 13:07 Triage completed. jg9 13:08 Arm band placed on right wrist. jg9 13:09 Patient maintains SpO2 saturation greater than 95% on room air. jg9 13:34 Christy Carter, VASYL is Primary Nurse. lr4 13:35 Basic Metabolic Panel Sent. lr4 13:35 CBC with Diff Sent. lr4 13:35 LFT's Sent. lr4 13:35 Magnesium Sent. lr4 13:35 NT PRO-BNP Sent. lr4 13:35 PT-INR Sent. lr4 13:35 Troponin HS Sent. lr4 13:36 Patient has correct armband on for positive identification. Bed in low position. Side lr4 rails up X 1. ekg monitor on. Pulse ox on. NIBP on. Door closed. 13:36 Inserted saline lock: 20 gauge in left upper arm, using aseptic technique. lr4 13:36 No provider procedures requiring assistance completed. lr4 13:55 XRAY Chest (1 view) In Process Unspecified. EDMS 15:12 IV discontinued, intact, bleeding controlled, No redness/swelling at site. Pressure lr4 dressing applied. Administered Medications: 13:40 Drug: Valium (diazepam) 5 mg Route: PO; lr4 Outcome: 13:46 Condition: stable lr4 15:10 Discharge ordered by . pm1 15:12 Discharged to home ambulatory. lr4 15:12 Discharge instructions given to patient. 15:22 Patient left the ED. lr4 Signatures: Dispatcher [employer] EDSD Damari Henderson ds1 Bryson Vazquez, VALENTIN TOY ASSEMBLER pm1 Nallely Franz, VASYL RN jg9 Christy Carter RN RN lr4
[2021-09-01 16:08] VITALS: TEMP 98.3; O2SAT 100
[2021-09-01 16:11] VITALS: BP 135/99
== END 2021-09-01 15:22 | disposition home or self-care (01) ==
LOC: ER 12:09
DX: R07.9 Chest pain, unspecified (principal); F32.A Depression, unspecified; F90.9 Attention-deficit hyperactivity disorder, unspecified type; Z88.0 Allergy status to penicillin
CPT/HCPCS: 36415; 71045; 80048; 80076; 81003; 81025; 83735; 83880; 84484; 85025; 85610; 93005; 99285

== ENCOUNTER 2024-08-28 15:53 | Emergency (ER) | payer OTHER ==
--- OUTSIDE RECORDS SUMMARY | 2024-08-28 15:57 | XMS REPORT | Continuity of Care Document ---
Author Name Unknown Address [address] [place] [address] [facility] thconnect Address 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 Name Role Phone Faraz Shen Attending Clinician [facility] Attending Clinician Un available Fidelia Brewer Attending Clinician [phone] FIDELIA RICHMOND Attending Clinician Unavailable LISHA WILSON Attending Clinician Unavailable Ebrahim Lisha ZABALA Attending Clinician [phone] Faraz Shen Admitting Clinician Ran Guthrie Admitting Clinician Unavailable Payers Payer Name Policy Type Policy Number Effective Date Expirati on Date Source Problems Condition Name Condition Details Condition Category Status Onset Date Resolution Date Last Treatment Date Treating Clinician Comments Source No known active problems No known active problems Disease [facility] [place] Allergies, Adverse Reactions, Alerts Allergy Name Allergy Type Status Severity Reaction(s) Onset Date Inactive Date Treating Clinician Comments Source Penicill ins [place] Active [place] 02-16 00:00: 00 [facility] Penicill ins DA Active [place] DIARRHEA 02-16 00:00: 00 [facility] vicryl DA Active [place] SWELLING 17 00:00: 00 [facility] Penicill ins DA Active [place] 3 00:00: 00 [facility] Penicill ins DA Active [place] DIARRHEA 3 00:00: 00 [facility] PENICILL IN G DRUG INGREDI Active Med Unknown-Cmnt 2 00:00: [address] [facility] Penicill in G Drug Allergy Active Unknown - See comments 08-16 00:00: 00 [facility] NO KNOWN ALLERGIE S Drug Class Active [facility] Social History Social Habit Start Date Stop Date Quantity Comments Source ASSERTION 2020-06-03 00:00:00 [facility] Exposure to SARS-CoV-2 (event) Not sure [facility] Tobacco use and exposure 2020-11-19 00:00:00 2020-11-19 00:00:00 Never used [facility] Sex Assigned At 1985 00:00:00 1985 00:00:00 [facility] Smoking Status Start Date Stop Date Source Never smoker [facility] Medications Ordered Medication Name Filled Medication Name Start Date Stop Date Current Medication? Ordering Clinician Indication Dosage Frequency Signature (SIG) Comments Components Source No known medications No Un su [facility] Vital Signs Vital Name Observation Time Observation Value Comments S ource Systolic blood pressure 2020-11-19 16:45:00 124 mm[Hg] [facility] Diastolic blood pressure 2020-11-19 16:45:00 85 mm[Hg] [facility] Heart rate 2020-11-19 16:45:00 100 /min [facility] Body temperature 2020-11-19 16:45:00 37.17 [facility] Respiratory rate 2020-11-19 16:45:00 17 /min [facility] Body height 2020-11-19 16:45:00 157.5 cm [facility] Body weight 2020-11-19 16:45:00 63.504 kg [facility] BMI 2020-11-19 16:45:00 25.61 kg/m2 [facility] Oxygen saturation in Arterial blood by Pulse oximetry 2020-11-19 16:45:00 99 /min [facility] Systolic blood pressure 2020-05-10 19:53:00 128 mm[Hg] [facility] Diastolic blood pressure 2020-05-10 19:53:00 88 mm[Hg] [facility] Heart rate 2020-05-10 19:53:00 103 /min [facility] Body temperature 2020-05-10 19:53:00 37.22 [facility] Respiratory rate 2020-05-10 19:53:00 18 /min [facility] Body height 2020-05-10 19:53:00 157.5 cm [facility] Body weight 2020-05-10 19:53:00 57.607 kg [facility] BMI 2020-05-10 19:53:00 23.23 kg/m2 [facility] Oxygen saturation in Arterial blood by Pulse oximetry 2020-05-10 19:53:00 98 /min [facility] Systolic blood pressure 2020-05-10 19:53:00 128 mm[Hg] [facility] Diastolic blood pressure 2020-05-10 19:53:00 88 mm[Hg] [facility] Heart rate 2020-05-10 19:53:00 103 /min [facility] Body temperature 2020-05-10 19:53:00 37.22 [facility] Respiratory rate 2020-05-10 19:53:00 18 /min [facility] Body height 2020-05-10 19:53:00 157.5 cm [facility] Body weight 2020-05-10 19:53:00 57.607 kg [facility] BMI 2020-05-10 19:53:00 23.23 [facility] saturation in Arterial blood by Pulse oximetry 2020-05-10 19:53:00 98 /min [facility] Procedures Procedure Date / Time Performed Performing Clinician Source [id number] 2021-02-16 00:00:00 [facility] [id number] 2021-02-16 00:00:00 DRYDA [facility] [id number] 2021-02-16 00:00:00 DRYDA [facility] COVID-19 (MOLECULAR TESTING NUCLEIC ACID AMPLIFICATION) 2020-11-19 16:53:00 Fidelia Richmond [facility] LAB ONLY COVID INTERPRETATION 2020-11-19 16:53:00 Fidelia Richmond [facility] Encounters Start Date/Time End Date/Time Encounter Type Admission Type Attending [facility] Facility Care Department Encounter ID Source 2021-02-25 14:56:00 Inpatient Faraz Kelly [facility] LD [id number] [facility] 2020-10-17 11:58:00 Inpatient Faraz Shen [facility] PRANAV [id number] [facility] 2020-09-06 20:16:00 Inpatient [facility] JUNAID [id number] [facility] 2024-02-23 14:00:00 2024-02-23 14:00:00 Outpatient Faraz Shen [facility] [id number] [facility] 2021-02-16 18:05:00 2021-02-18 13:31:00 Inpatient Faraz Nicole [facility] OBPP [id number] [facility] 2020-11-19 11:31:15 2020-11-19 13:32:54 Urgent Care Provider, [facility] Urgent Care Fidelia Richmond [facility] One [id number] [facility] 2020-11-19 11:40:00 2020-11-19 11:40:00 Outpatient FIDELIA DUMONT [facility] [id number] [facility] 2020-05-10 15:40:00 2020-05-10 15:40:00 [id number] 2020-05-10 13:40:39 2020-05-10 14:00:39 Urgent Care Provider, [facility] Office Building One [id number] 2020-05-10 13:40:39 2020-05-10 14:00:39 Urgent Care Provider, [facility] Urgent [facility] [id number] [id number] [facility] 2020-05-10 13:40:00 2020-05-10 13:40:00 [id number] Results Test Description Test Time Test Comments Results Result Co mments Source CBC W/AUTO [id number] 08:15:00* Test Item Value Reference Range Interpretation Comme nts WHITE BLOOD CELL (test code = WBC) [...] pg 27.3-33.9 N MEAN CELL HGB CONCETRATION ( test code = MCHC) 31.5 gm/dL 32.0-34.2 L RED CELL DISTRIBUTION WIDTH (test code = RDW) 15.4 % 12.2-16.3 N PLATELET COUNT (test code = PLT) 220 K/mm3 134-363 N MEAN PLATELET VOLUME (test c ode = MPV) 9.6 fL 9.2-12.7 N NEUTROPHIL % (test code = NT%) 74.2 [...] = BA#) 0.0 K/mm3 RBC MORPHOLOGY REQUIRED (carmen t code = RBCM) NORMAL NORMAL PLATELET MORPHOLOGY REQUIRED (test code = PLTMR) NORMAL NORMAL PROTHROMBIN [id number] 23:23:00* Test Item Value Reference Range Interpretation Comme nts PROTHROMBIN TIME PATIENT (te st code = PTP) 12.0 secs 10.1-12.3 N IS PATIENT ON ANTICOAGULANTS ? NINTERNATIONAL NORMAL [id number] 23:23:00* Test Item Value Reference Range Interpretation Comme nts INTERNATIONAL NORMAL RATIO (test code = INR) 1.08 The INR is to be used only for monitoring oral anticoagulanttherapy. INDICATION INR VALUE 1. Prophylaxis including high risk surgery 2.0 - 2.52. Deep venous thrombosis. Pulmonary embolism. Atrial fibrillation or bioprosthetic heart valves 2.0 - 3.03. Mechanical heart valves or recurrent systemic embolism. 3.0 - 3.5 IS PATIENT ON ANTICOAGULANTS ? NTHROMBOPLASTIN TIME [id number] 23:23:00* Test Item Value Reference Range Interpretation Comme nts THROMBOPLASTIN TIME PARTIAL (test code = PTT) 31.9 secs 22-38 N IS PATIENT ON ANTICOAGULANTS ? NCBC W/AUTO [id number] 23:15:00* Test Item Value Reference Range Interpretation Comme nts WHITE BLOOD CELL (test code = WBC) [...] pg 27.3-33.9 N MEAN CELL HGB CONCETRATION ( test code = MCHC) 32.3 gm/dL 32.0-34.2 N RED CELL DISTRIBUTION WIDTH (test code = RDW) 15.4 % 12.2-16.3 N PLATELET COUNT (test code = PLT) 239 K/mm3 134-363 N MEAN PLATELET VOLUME (test c ode = MPV) 9.6 fL 9.2-12.7 N NEUTROPHIL % (test code = NT%) 79.3 [...] = BA#) 0.0 K/mm3 RBC MORPHOLOGY REQUIRED (carmen t code = RBCM) NORMAL NORMAL PLATELET MORPHOLOGY REQUIRED (test code = PLTMR) NORMAL NORMAL UA RFLX MICR CULT IF [id number] 23:13:00* Test Item Value Reference Range Interpretation Comme nts UA COLOR (test code = COLU) YELLOW YELLOW UA APPEARANCE (test code = APPU) CLEAR CLEAR UA GLUCOSE DIPSTICK (test co de = DGLUU) NEGATIVE NEG UA BILIRUBIN DIPSTICK (test code = BILU) NEGATIVE NEG UA KETONE DIPSTICK (test cod e = KETU) NEGATIVE NEG UA SPECIFIC GRAVITY (test co de = SGU) 1.015 1.001-1.035 N UA BLOOD DIPSTICK (test code = LIZ) 1+ NEG A UA PH DIPSTICK (test code = NATHALY) 7.0 5-9 UA PROTEIN DIPSTICK (test co de = PROU) NEGATIVE NEG UA UROBILINIOGEN DIPSTICK (test code = URO) NEGATIVE mg/dL NEG UA NITRITE DIPSTICK (test co de = ARBEN) NEG NEG UA LEUKOCYTE ESTERASE DIPSTI CK (test code = LEUU) NEG NEG UA WBC (test code = WBCU) 0-2 #/hpf NONE SEEN UA RBC (test code = RBCU) 6-10 #/hpf NONE SEEN A UA EPITHELIAL CELLS (test co de = EPIU) RARE #/HPF RARE-FEW UA BACTERIA (test code = BACU) RARE /HPF RARE-FEW UA MUCUS (test code = MUCU) RARE NONE SEEN Indication for culture: Temperature > 100.4 FSpecimen Description: CATHETER LACTIC [id number] 23:12:00* Test Item Value Reference Range Interpretation Comme nts LACTIC ACID (test code = LACT) 1.0 MMOL/L 0.5-2.2 N COMPREHENSIVE METABOLIC [id number] 23:07:00* Test Item Value Reference Range Interpretation Comme nts SODIUM (test code = NA) 138 mEq/L 135-145 N POTASSIUM (test code = K) 4.1 mEq/L 3.5-5.0 N CHLORIDE (test code = CL) 106 mEq/L 100-115 N CARBON DIOXIDE (test code = CO2) 24 mEq/L 22-31 N ANION GAP (test code = GAP) 12.10 10-20 N GLUCOSE (test code = GLU) 100 mg/dL 65-110 N BLOOD UREA NITROGEN (test co de = BUN) 9 mg/dL 7-18 N GLOMERULAR FILTRATION RATE ( test code = GFR) 114 ml/min >60 N CREATININE (test code = CREAT) 0.6 mg/dL 0.5-1.0 N TOTAL PROTEIN (test code = PROT) 5.6 gm/dL 6.3-8.2 L ALBUMIN (test code = ALB) 2.5 gm/dL 3.4-4.8 L CALCIUM (test code = CA) 8.0 mg/dL 8.4-10.2 L BILIRUBIN TOTAL (test code = BILT) 0.2 mg/dL 0.2-1.0 N SGOT/AST (test code = AST) 17 units/L 15-37 N SGPT/ALT (test code = ALT) 13 units/L 12-78 N ALKALINE PHOSPHATASE TOTAL ( test code = ALKP) 937 units/L 46-116 H AG HEPATITIS B [id number] 20:10:00* Test Item Value Reference Range Interpretation Comme nts AG HEPATITIS B SURFACE (test code = HBSAG) NONREACTIVE NONREACTIVE AB HEPATITIS C [id number] 20:10:00* Test Item Value Reference Range Interpretation Comme nts AB HEPATITIS C (test code = HCVAB) NONREACTIVE NONREACTIVE SIGNAL TO CUTOFF (test code = CUTOFF) 0.02 <0.80 N AB [id number] 20:10:00* Test Item Value Reference Range Interpretation Comme nts AB TREPONEMA (test code = TREPAB) NONREACTIVE NONREACTIVE AB HIV 1 20:10:00* Test Item Value Reference Range Interpretation Comme nts AB HIV 1 2 (test code = ZKX40XC) NONREACTIVE NONREACTIVE Done by [facility] [employer] 4th Gen HIV Ag/Ab Combo Screen AG HEPATITIS B [id number] 19:51:00* Test Item Value Reference Range Interpretation Comme nts AG HEPATITIS B SURFACE (test code = HBSAG) NONREACTIVE NONREACTIVE AB HEPATITIS C [id number] 19:51:00* Test Item Value Reference Range Interpretation Comme nts AB HEPATITIS C (test code = HCVAB) NONREACTIVE SIGNAL TO CUTOFF (test code = CUTOFF) <0.80 AB [id number] 19:51:00* Test Item Value Reference Range Interpretation Comme nts AB TREPONEMA (test code = TREPAB) NONREACTIVE NONREACTIVE AB HIV 1 19:51:00* Test Item Value Reference Range Interpretation Comme nts AB HIV 1 2 (test code = BVI47BV) NONREACTIVE CBC W/AUTO [id number] 18:54:00* Test Item Value Reference Range Interpretation Comme nts WHITE BLOOD CELL (test code = WBC) [...] pg 27.3-33.9 N MEAN CELL HGB CONCETRATION ( test code = MCHC) 32.7 gm/dL 32.0-34.2 N RED CELL DISTRIBUTION WIDTH (test code = RDW) 15.2 % 12.2-16.3 N PLATELET COUNT (test code = PLT) 263 K/mm3 134-363 N MEAN PLATELET VOLUME (test c ode = MPV) 9.5 fL 9.2-12.7 N NEUTROPHIL % (test code = NT%) 74.7 [...] = BA#) 0.0 K/mm3 RBC MORPHOLOGY REQUIRED (carmen t code = RBCM) NORMAL NORMAL PLATELET MORPHOLOGY REQUIRED (test code = PLTMR) NORMAL NORMAL COVID 19 Asymptomatic IH [id number] 18:34:00* Test Item Value Reference Range Interpretation Comme nts COVID 19 Asymptomatic IH AG (test code = COVNONPUIAG) NEGATIVE NEGATIVE This test has be en authorized only for the detection ofproteins from SARS-CoV-2, not for any other viruses orpathogens. Negative results should be treated as presumptive andconfirmed with a molecular assay, if necessary for patientmanagement. Negative results do not rule out COVID-19 andshould not be used as the sole basis for treatment orpatient management decisions, including infection controldecisions. Negative results should be considered in thecontext of a patient's recent exposures, history and thepresence of clinical signs and symptoms consistent withCOVID-19. This test has not been FDA cleared or approved; the test hasbeen authorized by FDA under an Emergency Use Authorization(EUA) for use by laboratories certified under the CLIA thatmeet the requirements to perform moderate, high or waivedcomplexity tests. This test is authorized for use at thePoint of Care (POC), i.e., in patient care settingsoperating under a CLIA Certificate of Waiver, Certificate ofCompliance, or Certificate of Accreditation. This test is only authorized for the duration of thedeclaration that circumstances exist justifying theauthorization of emergency use of in vitro diagnostic testsfor detection and/or diagnosis of COVID-19 under Agqjeka615(b)(1) of the Act, 21 U.S.C. 360bbb-3(b)(1), unless theauthorization is terminated or revoked sooner. LAB ONLY COVID [id number] 23:38:30COVID DMT InterpretationInterpretation/Recommendations: Molecular NAAT Tests for Active Infection with the SARS-CoV-2 Virus: The patient has currently tested negative for the SARS-CoV-2 virus that causes COVID-19 illness. This most likely indicates that the patient does not have an active infectionwith the SARS-CoV-2 virus. However, infection is not completely ruled out as the false negative rate for molecular NAAT testing using a nasopharyngeal sample can be up to 30%, mostly dependent on thetiming of sample collection in relation to illness [...] week of symptoms). Tests for IgM and/or IgG Antibodies to the SARS-CoV-2 Virus: If the patient develops COVID-19 illness in the future, testing for IgM and IgG antibodies approximately 3 weeks [...] COVID-19 testing the patient has had at [facility], including molecular NAAT testing (more commonly known as PCR testing and Rapid ID Now testing) and antibody testing. It does not take into account any testing that a patient has had outside of the [facility] medical record. [facility] LABORATORY SERVICESCOVID TupouizKOVQ-RuM-5 NAAT (no units) ? ? Date ? Value ? 11/19/2020 ? Not Detected ? ? ? 05/10/2020 ? Not Detected ? [facility]-19 (MOLECULAR TESTING NUCLEIC ACID AMPLIFICATION)2020-11-20 00:41:37* Test Item Value Reference Range Interpretation Comme nts SARS-CoV-2 NAAT (test code = 18985-1) Not Detected Not Detected KATARZYNA (test code = KATARZYNA) [place] [facility] SARS-CoV-2 Assay is a real-time RT-PCR test intended for the qualitative detection of RNA from SARS-CoV-2 from nasopharyngeal (SOLE LEVELER) specimens. It is used under Emergency Use [...] patient testing if clinically indicated. Lab Interpretation (test code = 12608-4) [facility] [id number] 13:10:00* Test Item Value Reference Range Interpretation Comme nts SODIUM (test code = NA) 132 mEq/L 135-145 L POTASSIUM (test code = K) 3.8 mEq/L 3.5-5.0 N CHLORIDE (test code = CL) 100 mEq/L 100-115 N CARBON DIOXIDE (test code = CO2) 24 mEq/L 22-31 N ANION GAP (test code = GAP) 11.50 10-20 N GLUCOSE (test code = GLU) 77 mg/dL 65-110 N BLOOD UREA NITROGEN (test co de = BUN) 11 mg/dL 7-18 N GLOMERULAR FILTRATION RATE ( test code = GFR) 142 ml/min >60 N CREATININE (test code = CREAT) 0.5 mg/dL [...] 17 units/L 12-78 N ALKALINE PHOSPHATASE TOTAL ( test code = ALKP) 78 units/L 46-116 N CBC W/AUTO [id number] 12:55:00* Test Item Value Reference Range Interpretation Comme nts WHITE BLOOD CELL (test code = WBC) [...] pg 27.3-33.9 N MEAN CELL HGB CONCETRATION ( test code = MCHC) 32.9 gm/dL 32.0-34.2 N RED CELL DISTRIBUTION WIDTH (test code = RDW) 13.5 % 12.2-16.3 N PLATELET COUNT (test code = PLT) 273 K/mm3 134-363 N MEAN PLATELET VOLUME (test c ode = MPV) 9.3 fL 9.2-12.7 N NEUTROPHIL % (test code = NT%) 88.8 [...] = BA#) 0.0 K/mm3 RBC MORPHOLOGY REQUIRED (carmen t code = RBCM) NORMAL NORMAL PLATELET MORPHOLOGY REQUIRED (test code = PLTMR) NORMAL NORMAL UA RFLX MICR CULT IF [id number] 22:05:00* Test Item Value Reference Range Interpretation Comme nts UA COLOR (test code = COLU) YELLOW YELLOW UA APPEARANCE (test code = APPU) CLEAR CLEAR UA GLUCOSE DIPSTICK (test code = DGLUU) 3+ NEG A UA BILIRUBIN DIPSTICK (test code = BILU) NEGATIVE NEG UA KETONE DIPSTICK (test cod e = KETU) 1+ NEG A UA SPECIFIC GRAVITY (test code = SGU) 1.009 1.001-1.035 N UA BLOOD DIPSTICK (test code = LIZ) NEG NEG UA PH DIPSTICK (test code = NATHALY) 6.0 5-9 UA PROTEIN DIPSTICK (test code = PROU) NEGATIVE NEG UA UROBILINIOGEN DIPSTICK (test code = URO) NEGATIVE mg/dL NEG UA NITRITE DIPSTICK (test code = ARBEN) NEG NEG UA LEUKOCYTE ESTERASE DIPSTICK (test code = LEUU) NEG NEG UA WBC (test code = WBCU) 0-2 #/hpf NONE SEEN UA RBC (test code = RBCU) NONE SEEN #/hpf NONE SEEN UA EPITHELIAL CELLS (test code = EPIU) RARE #/HPF RARE-FEW UA BACTERIA (test code = BACU) RARE /HPF RARE-FEW UA MUCUS (test code = MUCU) RARE NONE SEEN Indication for culture: Dysuria/FrequencySpecimen Description: CLEAN CATCHHCG [id number] 21:29:00* Test Item Value Reference Range Interpretation Comme nts HCG SERUM (test code = HCG) 51919 INTERPRETATION:V ALUES BETWEEN 15-20 milliInternational units/mL NEED TO BERETESTED WITHIN 48 HOURS. All units for these ranges are in milliInternationalunits/mL0-1 WK AFTER CONCEPTION 0-50 1-2 WKS AFTER CONCEPTION 40-3002-3 WKS AFTER CONCEPTION 100-1,0003-4 WKS AFTER CONCEPTION 500-6,0001-2 MONTHS AFTER CONCEPTION 5,000-200,0002-3 MONTHS AFTER CONCEPTION 10,000-100,0002ND TRIMESTER 3,000-50,0003RD TRIMESTER 1,000-50,000 SPECIMENS WITH AN HCG LEVEL FROM 0-6 milliInternationalunits/mL SHOULD BE CONSIDERED NEGATIVE COMPREHENSIVE METABOLIC [id number] 21:14:00* Test Item Value Reference Range Interpretation Comme nts SODIUM (test code = NA) 135 mEq/L 135-145 N POTASSIUM (test code = K) 3.8 mEq/L 3.5-5.0 N CHLORIDE (test code = CL) 100 mEq/L 100-115 N CARBON DIOXIDE (test code = CO2) 22 mEq/L 22-31 N ANION GAP (test code = GAP) 16.70 10-20 N GLUCOSE (test code = GLU) 85 mg/dL 65-110 N BLOOD UREA NITROGEN (test co de = BUN) 9 mg/dL 7-18 N GLOMERULAR FILTRATION RATE ( test code = GFR) 115 ml/min >60 N CREATININE (test code = CREAT) 0.6 mg/dL [...] 30 units/L 12-78 N ALKALINE PHOSPHATASE TOTAL ( test code = ALKP) 46 units/L 46-116 N CBC W/AUTO [id number] 20:47:00* Test Item Value Reference Range Interpretation Comme nts WHITE BLOOD CELL (test code = WBC) [...] pg 27.3-33.9 N MEAN CELL HGB CONCETRATION ( test code = MCHC) 34.1 gm/dL 32.0-34.2 N RED CELL DISTRIBUTION WIDTH (test code = RDW) 13.1 % 12.2-16.3 N PLATELET COUNT (test code = PLT) 274 K/mm3 134-363 N MEAN PLATELET VOLUME (test c ode = MPV) 9.2 fL 9.2-12.7 N NEUTROPHIL % (test code = NT%) 88.2 [...] BA#) 0.0 K/mm3 PLATELET MORPHOLOGY REQUIRED (test code = PLTMR) NORMAL NORMAL PLACENTA THIRD [id number] 17:53:00 RUN DATE: 09/05/18 [facility] PAGE 1 RUN TIME: 1922 Specimen Inquiry RUN USER: INTERFACE --------- ---PATIENT: CARLY OMALLEY [facility] #: [id number] AGE/SX: 33/ ROOM: 2009 RE09/02/18REG DR: Faraz Shen : 89 BED: A DIS: 09/05/18 STATUS: DIS IN TLOC: SPEC #: [id number] RECD:09/03/18 STATUS: LYNDA ROSS #: [id number] [place]: 09/03/18- SUBM DR: Faraz Shen MD ENTERED: 09/03/18 SP TYPE: PLACIII OTHR DR: Tonya Coronel MD ORDERED: LEVEL V SURGICA CODES: [id number] - PLACENTA, NOS COPIES TO: Tonya Coronel MD [address] [facility] [address] [place], [place] [id number] [email or web address] Faraz Shen MD [address] [facility] [address] [place] [address] PROCEDURES: LEVEL V SURGICA (Incomplete) TISSUES: PLACENTA, NOS - PLACENTA CLINICAL HISTORY 33 year old, IUP @ 39.5 weeks, [id number], vaginal delivery, non-reassuring monitoring, meconium (kr) FINAL DIAGNOSIS Placenta, 39.5 weeks gestational age, vaginal delivery: - third trimester placenta, 360 gms (5th percentile) with focal chronic basal villitis (low-grade) and meconium macrophages within membranes - membranes and trivascular umbilical cord free of inflammation Tissue code 1 CPT code(s): 65035 [facility] 09/05/18 CONTINUED ON NEXT PAGE RUN DATE: 09/05/18 [facility] PAGE 2 RUN TIME: 1922 Specimen Inquiry RUN USER: INTERFACE SPEC #: [id number] PATIENT: LENORACARLY#[id number] (Continued) GROSS DESCRIPTION The specimen was received in a container, labeled with the patient's name, unit number and designated "placenta". The following attributes are observed: Cord insertion: 7 cm from margin Cord length: 22 cm Number of vessels: 3 Cord color: Garcia Other cord findings:Slightly edematous surface findings: Steel blue, wrinkled, glistening [...] Cassettes: A through D jm/wpd 09/04/18 @ 3399 MICROSCOPIC DESCRIPTION The trivascular umbilical cord and membranes are free of inflammation. There is amniotic epithelial hyperplasia and several meconium macrophages are seen. The placental villi have a third trimester morphology and there is focal basal villitis. No decidual vasculopathy identified. [facility] 09/05/18 Signed Vandana South MD 09/05/18 1753 END OF REPORT [facility] [id number] 07:57:00* Test Item Value Reference Range Interpretation Comme nts HEMOGLOBIN (test code = HGB) 11.5 g/dL 10.7-13.9 N HEMATOCRIT (test code = HCT) 35.6 % 32.1-42.1 N CAPILLARY BLOOD [id number] 03:24:00* Test Item Value Reference Range Interpretation Comme nts CAPILLARY BLOOD GAS PH (test code = PHC) 7.333 7.35-7.45 L CAPILLARY BLOOD GAS PCO2 (te st code = PCO2C) 38.3 mmHg CAPILLARY BLOOD GAS PO2 (carmen t code = PO2C) 29.7 mmHg CBG HCO3 (test code = HCO3C) 19.9 meq/L CBG BASE EXCESS (test code = BEC) -5.4 CBG O2 SATURATION (test code = SATC) 52.7 % CAPILLARY BLOOD GAS TYPE (te st code = TYPEC) CBLV CAPILLARY BLOOD GAS FIO2 (te st code = FIO2C) 21.0 % CAPILLARY BLOOD [id number] 03:24:00* Test Item Value Reference Range Interpretation Comme nts CAPILLARY BLOOD GAS PH (test code = PHC) 7.089 7.35-7.45 LL CAPILLARY BLOOD GAS PCO2 (te st code = PCO2C) 80.1 mmHg CAPILLARY BLOOD GAS PO2 (carmen t code = PO2C) 20.1 mmHg CBG HCO3 (test code = HCO3C) 23.7 meq/L CBG BASE EXCESS (test code = BEC) -8.0 CBG O2 SATURATION (test code = SATC) 18.9 % CAPILLARY BLOOD GAS TYPE (te st code = TYPEC) CBLA CAPILLARY BLOOD GAS FIO2 (te st code = FIO2C) 21.0 % AG HEPATITIS B [id number] 11:58:00* Test Item Value Reference Range Interpretation Comme nts AG HEPATITIS B SURFACE (test code = HBSAG) NONREACTIVE NONREACTIVE AB HEPATITIS C [id number] 11:58:00* Test Item Value Reference Range Interpretation Comme nts AB HEPATITIS C (test code = HCVAB) NONREACTIVE NONREACTIVE SIGNAL TO CUTOFF (test code = CUTOFF) 0.04 <0.80 N AB [id number] 11:58:00* Test Item Value Reference Range Interpretation Comme nts AB TREPONEMA (test code = TREPAB) NONREACTIVE NONREACTIVE AG HEPATITIS B [id number] 11:31:00* Test Item Value Reference Range Interpretation Comme nts AG HEPATITIS B SURFACE (test code = HBSAG) NONREACTIVE NONREACTIVE AB HEPATITIS C [id number] 11:31:00* Test Item Value Reference Range Interpretation Comme nts AB HEPATITIS C (test code = HCVAB) NONREACTIVE SIGNAL TO CUTOFF (test code = CUTOFF) <0.80 AB [id number] 11:31:00* Test Item Value Reference Range Interpretation Comme nts AB TREPONEMA (test code = TREPAB) NONREACTIVE NONREACTIVE CBC W/AUTO [id number] 10:49:00* Test Item Value Reference Range Interpretation Comme nts WHITE BLOOD CELL (test code = WBC) [...] pg 27-35 N MEAN CELL HGB CONCETRATION ( test code = MCHC) 32.0 gm/dL 32.2-34.1 L RED CELL DISTRIBUTION WIDTH (test code = RDW) 15.2 % 12.4-16.5 N PLATELET COUNT (test code = PLT) 280 K/mm3 133-385 N IMMATURE PLATELET FRACTION ( test code = IPF) 0.0 % 0.0-10.8 N MEAN PLATELET VOLUME (test c ode = MPV) 10.2 fl 9.1-12.7 N NEUTROPHIL % (test code = NT%) 73.9 [...] = BA#) 0.0 K/mm3 RBC MORPHOLOGY REQUIRED (carmen t code = RBCM) NORMAL NORMAL PLATELET MORPHOLOGY REQUIRED (test code = PLTMR) NORMAL NORMAL Notes Date/Time Note Provider Source 2021-02-18 08:11:00 [facility] ([facility]) OB Disch REPORT#:[id number] REPORT STATUS: Signed DATE:02/18/21 TIME: 810 PATIENT: CARLY OMALLEY UNIT #: [id number] ROOM/BED: [address] : 87 AGE: 36 SEX: F ATTEND: Faraz Shen MD ADM AUTHOR: Faraz Shen MD * ALL edits or amendments must be made on the electronic/computer document * Subjective Subjective Admission EGA: Weeks: 38 Days: 5 EGA at delivery (wks/days): 38 weeks (5d) Status/day: post (day 2) Comments: doing well, baby was clusterfeeding a lot last night. Objective General VS: Vital Signs Date Temp Pulse Resp B/P B/P Mean Pulse Ox FiO2 02/17-02/18 97.8-98.1 80 18-20 98-101/66-67 Last Documented: Result Date Time B/P /02/18 0018 Temp 97.8 02/18 0018 Pulse 80 02/18 0018 Resp 18 02/18 0018 B/P Mean 89.0 02/17 0130 Pulse Ox 97 02/17 0126 PATIENT WEIGHT: Weight (lb): 155 Weight (oz): Weight (kg): 70.307 Physical Exam Lungs: unlabored breathing Neuro: Exam: alert, oriented x3, normal speech Fundus: firm, below the umbilicus, non-tender Lower extremities: Edema: none Calf tenderness: negative Results Findings/Data: Laboratory Tests: 02/17 02/16 02/16 02/16 0735 2233 2233 2225 Chemistry Sodium (135 - 145 mEq/L) 138 Potassium (3.5 - 5.0 mEq/L) 4.1 Chloride (100 - 115 mEq/L) 106 Carbon Dioxide (22 - 31 mEq/L) 24 Anion Gap (10 - 20) 12.10 BUN (7 - 18 mg/dL) 9 Creatinine (0.5 - 1.0 mg/dL) 0.6 Glomerular Filtr Rate (>60 ml/min) 114 Glucose (65 - 110 mg/dL) 100 Lactic Acid (0.5 - 2.2 MMOL/L) 1.0 Calcium (8.4 - 10.2 mg/dL) 8.0 L Total Bilirubin (0.2 - 1.0 mg/dL) 0.2 AST (15 - 37 units/L) 17 ALT (12 - 78 units/L) 13 Total Alk Phosphatase (46 - 116 units/L) 937 H Total Protein (6.3 - 8.2 gm/dL) 5.6 L Albumin (3.4 - 4.8 gm/dL) 2.5 L Coagulation PT (10.1 - 12.3 secs) 12.0 INR 1.08 PTT (O'Brien) (22 - 38 secs) 31.9 Hematology WBC (6.5 - 12.3 K/mm3) 15.4 H 14.4 H RBC (3.51 - 4.69 M/mm3) 3.40 L 3.73 Hgb (10.1 - 13.8 g/dL) 9.4 L 10.3 Hct (32.5 - 41.8 %) 29.8 L 31.9 L MCV (84.6 - 96.6 fL) 87.6 85.5 MCH (27.3 - 33.9 pg) 27.6 27.6 MCHC (32.0 - 34.2 gm/dL) 31.5 L 32.3 RDW (12.2 - 16.3 %) 15.4 15.4 Plt Count (134 - 363 K/mm3) 220 239 MPV (9.2 - 12.7 fL) 9.6 9.6 Neut % (Auto) (57.9 - 77.3 %) 74.2 79.3 H Lymph % (Auto) (14.5 - 29.7 %) 14.0 L 10.2 L [place] % (Auto) (3.6 - 10.2 %) 10.0 7.5 Eos % (Auto) (0.0 - 3.0 %) 0.6 0.8 Baso % (Auto) (0.1 - 0.9 %) 0.3 0.3 Neut # (Auto) (K/mm3) 11.5 11.4 Lymph # (Auto) (K/mm3) 2.2 1.5 [place] # (Auto) (K/mm3) 1.5 1.1 Eos # (Auto) (K/mm3) 0.10 0.12 Baso # (Auto) (K/mm3) 0.0 0.0 Urines Urine Color (YELLOW) YELLOW Urine Appearance (CLEAR) CLEAR Urine pH (5 - 9) 7.0 Ur Specific [place] (1.001 - 1.035) 1.015 Urine Protein (NEG) NEGATIVE Urine Glucose (UA) (NEG) NEGATIVE Urine Ketones (NEG) NEGATIVE Urine Blood (NEG) 1+ H Urine Nitrite (NEG) NEG Urine Bilirubin (NEG) NEGATIVE Urine Urobilinogen (NEG mg/dL) NEGATIVE Ur Leukocyte Esterase (NEG) NEG Urine RBC (NONE SEEN #/hpf) 6-10 H Urine WBC (NONE SEEN #/hpf) 0-2 Ur Epithelial Cells (RARE - FEW #/HPF) RARE Urine Bacteria (RARE - FEW /HPF) RARE Urine Mucus (NONE SEEN) RARE 02/16 02/16 1820 1812 Hematology WBC (6.5 - 12.3 K/mm3) 14.6 H RBC (3.51 - 4.69 M/mm3) 4.02 Hgb (10.1 - 13.8 g/dL) 11.2 Hct (32.5 - 41.8 %) 34.3 MCV (84.6 - 96.6 fL) 85.3 MCH (27.3 - 33.9 pg) 27.9 MCHC (32.0 - 34.2 gm/dL) 32.7 RDW (12.2 - 16.3 %) 15.2 Plt Count (134 - 363 K/mm3) 263 MPV (9.2 - 12.7 fL) 9.5 Neut % (Auto) (57.9 - 77.3 %) 74.7 Lymph % (Auto) (14.5 - 29.7 %) 12.7 L [place] % (Auto) (3.6 - 10.2 %) 9.6 Eos % (Auto) (0.0 - 3.0 %) 1.2 Baso % (Auto) (0.1 - 0.9 %) 0.3 Neut # (Auto) (K/mm3) 10.9 Lymph # (Auto) (K/mm3) 1.9 [place] # (Auto) (K/mm3) 1.4 Eos # (Auto) (K/mm3) 0.17 Baso # (Auto) (K/mm3) 0.0 Serology Treponema pallidum Ab (NONREACTIVE) NONREACTIVE Hep Bs Antigen (NONREACTIVE) NONREACTIVE Hepatitis C Antibody (NONREACTIVE) NONREACTIVE Hep C Ab Signal/Cutoff (<0.80) 0.02 HIV 1 2 Antibody (NONREACTIVE) NONREACTIVE SARS-CoV-2 Ag (Rapid) (NEGATIVE) NEGATIVE Microbiology: Date/Time Procedure - Status Source Growth 02/16 2233 Blood Culture - RES BLOOD 02/16 2233 Blood Culture Gram Stain - RES BLOOD 02/16 2233 Blood Culture - RES BLOOD 02/16 2233 Blood Culture Gram Stain - RES BLOOD Discharge Summary General Problem List/A P: 1. (spontaneous vaginal delivery) Assessment: nml progress Date of admission: Date of admission: 02/16/21 Admission diagnosis: labor-term Hospital course: spontaneous labor, spontaneous vag delivery, nml postop/ postpart care, chorioamnionitis Procedures: spontaneous vaginal deliv Discharge to: Home/Self Care Discharge diagnosis: full term , chorio Discharge management: less than 30 mins Baby A: Vaginal delivery: spontaneous status: live born Gender: female 1 minute: 8 5 minutes: 9 Nursing data: The data set between the solid lines has been imported from nursing documentation. Any exceptions have been noted below under Provider comments. Delivery date A: 02/16/21 Delivery time infant A: 2307 Birthweight (gm) infant A: 3380 Feeding preference: Gender A: Female 1 minute infant A: 8 5 minutes infant A: 9 10 minutes A: Provider comments on imported nursing data: [] Plan: routine care, discharge today Vaginal packing at delivery: No Discharge Instructions Instructions: instr and warnings rev'd Diet: Regular Activity: Nothing in the vagina, no tub baths. Call for fever, increased pain, increased bleeding, or any concerning symptoms. Additional discharge routines: None Contraception discussed: abstinence for 4-6 weeks, will discuss at PP visit Discharge meds: Continue taking these medications: PNV WITH FE FUMARATE/FA () 1 EACH TAB Start taking the following new medications: HYDROcodone/APAP (NORCO 5/325) 1 TAB TAB 1 TABLET ORAL EVERY 4 HOURS NEEDED. as needed for MODERATE PAIN (SCALE 4 -6) Qty = 10 No Refills IBUPROFEN (MOTRIN) 600 MG TAB 600 MILLIGRAM ORAL EVERY 6 HOURS NEEDED. as needed for MILD PAIN (SCALE 1-3) Qty = 30 No Refills DOCUSATE SODIUM (COLACE) 100 MG CAP 100 MILLIGRAM ORAL TWICE DAILY NEEDED. as needed for CONSTIPATION 3rd CHOICE Qty = 60 No Refills Prescriptions: e-prescribe Consultation(s): Consultation performed: anesthesia at 0931 RPT #:[id number] END OF REPORT [facility] 2021-02-17 12:24:00 [facility] ([facility]) OB Postpart Progr Note REPORT#:[id number] REPORT STATUS: Signed DATE:02/17/21 TIME: 1224 PATIENT: CARLY OMALLEY UNIT #: [id number] ROOM/BED: [address] : 89 AGE: 36 SEX: F ATTEND: Faraz Shen MD ADM AUTHOR: Faraz Shen MD * ALL edits or amendments must be made on the electronic/computer document * Subjective Subjective Admission EGA: Weeks: 38 Days: 5 EGA at delivery (wks/days): 38 weeks (5d) Status/day: post (day 1) Comments: doing well, pain well controlled. tolerating PO, voiding. ambulating. Normal lochia. Objective Nursing Documentation Review Nursing data: The data set between the solid lines has been imported from nursing documentation. Any exceptions have been noted below under Provider comments. Feeding preference: Post hemorrhage risk score: Low Risk for Hemorrhage. Provider comments on imported nursing data: [] General VS: Vital Signs Date Temp Pulse Resp B/P B/P Mean Pulse Ox FiO2 02/16-02/17 98.1-100.6 80-137 16-20 98-206/52-97 75.0-125.0 90-100 Last Documented: Result Date Time B/P 02/17 165 Temp 98.1 02/17 1651 Pulse 80 02/17 1651 Resp 20 02/17 1651 B/P Mean 89.0 02/17 0130 Pulse Ox 97 02/17 0126 PATIENT WEIGHT: Weight (lb): 155 Weight (oz): Weight (kg): 70.307 Physical Exam Lungs: unlabored breathing Neuro: Exam: alert, oriented x3, normal speech Fundus: firm, below the umbilicus, non-tender Lacerations: Perineal laceration(s): 2nd Degree (to left labia) Lower extremities: Edema: none Calf tenderness: negative Result Findings/data: Laboratory Tests: 02/17 02/16 02/16 02/16 0735 2233 2233 2225 Chemistry Sodium (135 - 145 mEq/L) 138 Potassium (3.5 - 5.0 mEq/L) 4.1 Chloride (100 - 115 mEq/L) 106 Carbon Dioxide (22 - 31 mEq/L) 24 Anion Gap (10 - 20) 12.10 BUN (7 - 18 mg/dL) 9 Creatinine (0.5 - 1.0 mg/dL) 0.6 Glomerular Filtr Rate (>60 ml/min) 114 Glucose (65 - 110 mg/dL) 100 Lactic Acid (0.5 - 2.2 MMOL/L) 1.0 Calcium (8.4 - 10.2 mg/dL) 8.0 L Total Bilirubin (0.2 - 1.0 mg/dL) 0.2 AST (15 - 37 units/L) 17 ALT (12 - 78 units/L) 13 Total Alk Phosphatase (46 - 116 units/L) 937 H Total Protein (6.3 - 8.2 gm/dL) 5.6 L Albumin (3.4 - 4.8 gm/dL) 2.5 L Coagulation PT (10.1 - 12.3 secs) 12.0 INR 1.08 PTT (O'Brien) (22 - 38 secs) 31.9 Hematology WBC (6.5 - 12.3 K/mm3) 15.4 H 14.4 H RBC (3.51 - 4.69 M/mm3) 3.40 L 3.73 Hgb (10.1 - 13.8 g/dL) 9.4 L 10.3 Hct (32.5 - 41.8 %) 29.8 L 31.9 L MCV (84.6 - 96.6 fL) 87.6 85.5 MCH (27.3 - 33.9 pg) 27.6 27.6 MCHC (32.0 - 34.2 gm/dL) 31.5 L 32.3 RDW (12.2 - 16.3 %) 15.4 15.4 Plt Count (134 - 363 K/mm3) 220 239 MPV (9.2 - 12.7 fL) 9.6 9.6 Neut % (Auto) (57.9 - 77.3 %) 74.2 79.3 H Lymph % (Auto) (14.5 - 29.7 %) 14.0 L 10.2 L [place] % (Auto) (3.6 - 10.2 %) 10.0 7.5 Eos % (Auto) (0.0 - 3.0 %) 0.6 0.8 Baso % (Auto) (0.1 - 0.9 %) 0.3 0.3 Neut # (Auto) (K/mm3) 11.5 11.4 Lymph # (Auto) (K/mm3) 2.2 1.5 [place] # (Auto) (K/mm3) 1.5 1.1 Eos # (Auto) (K/mm3) 0.10 0.12 Baso # (Auto) (K/mm3) 0.0 0.0 Urines Urine Color (YELLOW) YELLOW Urine Appearance (CLEAR) CLEAR Urine pH (5 - 9) 7.0 Ur Specific [place] (1.001 - 1.035) 1.015 Urine Protein (NEG) NEGATIVE Urine Glucose (UA) (NEG) NEGATIVE Urine Ketones (NEG) NEGATIVE Urine Blood (NEG) 1+ H Urine Nitrite (NEG) NEG Urine Bilirubin (NEG) NEGATIVE Urine Urobilinogen (NEG mg/dL) NEGATIVE Ur Leukocyte Esterase (NEG) NEG Urine RBC (NONE SEEN #/hpf) 6-10 H Urine WBC (NONE SEEN #/hpf) 0-2 Ur Epithelial Cells (RARE - FEW #/HPF) RARE Urine Bacteria (RARE - FEW /HPF) RARE Urine Mucus (NONE SEEN) RARE 02/16 02/16 1820 1812 Hematology WBC (6.5 - 12.3 K/mm3) 14.6 H RBC (3.51 - 4.69 M/mm3) 4.02 Hgb (10.1 - 13.8 g/dL) 11.2 Hct (32.5 - 41.8 %) 34.3 MCV (84.6 - 96.6 fL) 85.3 MCH (27.3 - 33.9 pg) 27.9 MCHC (32.0 - 34.2 gm/dL) 32.7 RDW (12.2 - 16.3 %) 15.2 Plt Count (134 - 363 K/mm3) 263 MPV (9.2 - 12.7 fL) 9.5 Neut % (Auto) (57.9 - 77.3 %) 74.7 Lymph % (Auto) (14.5 - 29.7 %) 12.7 L [place] % (Auto) (3.6 - 10.2 %) 9.6 Eos % (Auto) (0.0 - 3.0 %) 1.2 Baso % (Auto) (0.1 - 0.9 %) 0.3 Neut # (Auto) (K/mm3) 10.9 Lymph # (Auto) (K/mm3) 1.9 [place] # (Auto) (K/mm3) 1.4 Eos # (Auto) (K/mm3) 0.17 Baso # (Auto) (K/mm3) 0.0 Serology Treponema pallidum Ab (NONREACTIVE) NONREACTIVE Hep Bs Antigen (NONREACTIVE) NONREACTIVE Hepatitis C Antibody (NONREACTIVE) NONREACTIVE Hep C Ab Signal/Cutoff (<0.80) 0.02 HIV 1 2 Antibody (NONREACTIVE) NONREACTIVE SARS-CoV-2 Ag (Rapid) (NEGATIVE) NEGATIVE Microbiology: Date/Time Procedure - Status Source Growth 02/16 2233 Blood Culture - RES BLOOD 02/16 2233 Blood Culture Gram Stain - RES BLOOD 02/16 2233 Blood Culture - RES BLOOD 02/16 2233 Blood Culture Gram Stain - RES BLOOD Diagnosis, Assessment Plan Diagnosis, Assessment Plan Problem List/A P: 1. (spontaneous vaginal delivery) Assessment: nml progress Plan: routine care, discharge tomorrow Consultation(s): Consultation performed: anesthesia at 1732 RPT #:[id number] [facility] OF REPORT [facility] 2021-02-[facility] 23:36:00 [facility] ([facility]) OB Delivery Note REPORT#:[id number] REPORT STATUS: Signed DATE:02/16/21 TIME: 2336 PATIENT: CARLY OMALLEY UNIT #: [id number] ROOM/BED: 032-A : 87 AGE: 36 SEX: F ATTEND: Faraz Shen MD ADM AUTHOR: Fina Lira MD * ALL edits or amendments must be made on the electronic/computer document * OB Delivery Nursing Documentation Review Nursing data: The data set between the solid lines has been imported from nursing documentation. Any exceptions have been noted below under Provider comments. _ ROM date: 02/16/21 ROM time: 2114 Membranes rupture method: AROM Amniotic fluid color: Clear Amniotic fluid amount: Steroids prior to arrival: Antibiotic prophylaxis given: Post hemorrhage risk score: Low Risk for Hemorrhage. Delivery date A: Delivery time infant A: Birthweight (gm) A: Weight (lb) A: Weight (oz) A: Gender infant A: Female 1 minute A: 5 minutes A: 10 minutes infant A: Cord pH obtained infant A: Vacuum time infant A: Vacuum # pulls infant A: Vacuum # popoffs A: QBL at delivery: __ Provider comments on imported nursing data: [] Pre-delivery GBS status: GBS status: positive evaluation at delivery: team Admission EGA: Weeks: 38 Days: 5 EGA at delivery (wks/days): 38 weeks (5d) Admission indication: spontaneous labor Baby A Information Baby A information Delivery date: 02/16/21 status: live born Wt of baby (grams): 3380 Wt of baby (lbs/oz): 01/06 Gender: female 1 minute: 8 5 minutes: 9 Presentation: vertex ABG details Baby A Cord blood gases: not collected Nuchal cord Baby A Nuchal cord: no Vaginal Delivery Vaginal delivery: Labor: spontaneous Vaginal delivery: spontaneous Amniotic fluid: clear Anesthesia type: epidural anesthesia Episiotomy: none Episiotomy repair: no Laceration repair: yes, 2-0 suture (chromic) Placenta: spontaneous, intact, sent to pathology Post delivery meds used: oxytocin, cytotec (800 mcg PO) Count: correct Vaginal packing: No Mother's condition: mother stable 's condition: stable in room Lacerations: Perineal laceration(s): 2nd Degree (to left labia) Extraction details OVD performed: no Shoulder dystocia present: no Note dictated: No Additional comments: cord blood collection for donation to [facility] Blood Loss/Details Blood loss at delivery: <1000 ml EBL at delivery (ml's): 500 at 2338 RPT #:[id number] END OF REPORT [facility] 2021-02-16 22:18:00 [facility] ([facility] OB Intrapart Prog Note REPORT#:[id number] REPORT STATUS: Signed DATE:02/16/21 TIME: 2217 PATIENT: CARLY OMALLEY UNIT #: [id number] ROOM/BED: [address] : 87 AGE: 36 SEX: F ATTEND: Faraz Shne MD ADM AUTHOR: Fina Lira MD * ALL edits or amendments must be made on the electronic/computer document * Subjective Subjective Admission EGA (wks/days): 38 weeks (6d) Patient reports: Patient reports: Yes contractions, Yes normal movement, Yes comfortable with epidural, No complaints, No abdominal pain, No vaginal bleeding, No leaking fluid, No headache, No blurred vision, No scotomata, No fever, No chills, No shortness of breath, No new complaints Objective Nursing Documentation Review Nursing data: The data set between the solid lines has been imported from nursing documentation. Any exceptions have been noted below under Provider comments. __ ROM date: 02/16/21 ROM time: 2114 __ Provider comments on imported nursing data: [] General VS: Last Documented: Result Date Time Pulse Ox 98 02/169 Pulse 115 02/169 B/P Mean 83.0 02/163 B/P 122/57 02/16 2153 Temp 98.6 02/16 2030 Resp 16 02/16 2030 Vital Signs Date Temp Pulse Resp B/P B/P Mean Pulse Ox FiO2 02/16 98.4-98.6 96-137 16 105-206/52-97 75.0-125.0 90-100 PATIENT WEIGHT: Weight (lb): 155 Weight (oz): Weight (kg): 70.307 Objective Cervical/ exam: Dilatation (cm): 5 Effacement (%): 100 station: - 1 presentation: cephalic Pelvis exam: Clinically adequate for this fetus: yes Uterine activity: Monitor: toco Frequency (description): regular Frequency (minutes): 2 Procedures: artificial rupture memb (clear), vaginal exam FHR Evaluation Baby A: Baby A baseline: 165 bpm Baby A variability: moderate 6-25 bpm Baby A accelerations: 15 X 15 Baby A decelerations: none Baby A FHR category: category 1 Result Findings/Data: Laboratory Tests: 02/16 02/16 1820 1812 Hematology WBC (6.5 - 12.3 K/mm3) 14.6 H RBC (3.51 - 4.69 M/mm3) 4.02 Hgb (10.1 - 13.8 g/dL) 11.2 Hct (32.5 - 41.8 %) 34.3 MCV (84.6 - 96.6 fL) 85.3 MCH (27.3 - 33.9 pg) 27.9 MCHC (32.0 - 34.2 gm/dL) 32.7 RDW (12.2 - 16.3 %) 15.2 Plt Count (134 - 363 K/mm3) 263 MPV (9.2 - 12.7 fL) 9.5 Neut % (Auto) (57.9 - 77.3 %) 74.7 Lymph % (Auto) (14.5 - 29.7 %) 12.7 L [place] % (Auto) (3.6 - 10.2 %) 9.6 Eos % (Auto) (0.0 - 3.0 %) 1.2 Baso % (Auto) (0.1 - 0.9 %) 0.3 Neut # (Auto) (K/mm3) 10.9 Lymph # (Auto) (K/mm3) 1.9 [place] # (Auto) (K/mm3) 1.4 Eos # (Auto) (K/mm3) 0.17 Baso # (Auto) (K/mm3) 0.0 Serology Treponema pallidum Ab (NONREACTIVE) NONREACTIVE Hep Bs Antigen (NONREACTIVE) NONREACTIVE Hepatitis C Antibody (NONREACTIVE) NONREACTIVE Hep C Ab Signal/Cutoff (<0.80) 0.02 HIV 1 2 Antibody (NONREACTIVE) NONREACTIVE SARS-CoV-2 Ag (Rapid) (NEGATIVE) NEGATIVE Microbiology: Date/Time Procedure - Status Source Growth 02/16 2217 Blood Culture - ORD BLOOD 02/16 2217 Blood Culture Gram Stain - ORD BLOOD 02/16 2217 Blood Culture - ORD BLOOD 02/16 2217 Blood Culture Gram Stain - ORD BLOOD Diagnosis, Assessment Plan Problem List/A P: 1. with 38 completed weeks gestation 2. Spontaneous onset of labor 3. GBS (group B Streptococcus carrier), +RV culture, currently 4. Chorioamnionitis, delivered, current hospitalization Assessment: abnormal FHR pattern, stable, doing well Plan: anticipate vag delivery, begin antibiotic therapy, epidural anesthesia, anesthesia consult at 2221 RPT #:[id number] END OF REPORT [facility] 2021-02-16 18:15:00 [facility] ([facility]) OB Admission / H P REPORT#:[id number] REPORT STATUS: Signed DATE:02/16/21 TIME: 1814 PATIENT: CARLY OMALLEY UNIT #: [id number] ROOM/BED: [address] : 87 AGE: 36 SEX: F ATTEND: Faraz Shen MD ADM AUTHOR: Fina Lira MD * ALL edits or amendments must be made on the electronic/computer document * OB History Nursing Documentation Review Nursing data: The data set between the solid lines has been imported from nursing documentation. Any exceptions have been noted below under Provider comments. Current data Steroids prior to arrival: ROM date: ROM time: EDC date: Gestational age (labor triage): Post hemorrhage risk score: Prior history : Para: Term: : Abortions spontaneous: Abortions induced: Living children: Ectopic: Stillbirths: Live births: deaths: Number of previous C/S: Reported maternal labs/data Blood type: Rh type: Rubella: Hepatitis B: HIV exposure test: VDRL: Group B beta strep: Rho(D) immune globulin this preg: Monitor mode - UA: Feeding preference: Provider comments on imported nursing data: [] Chief complaint: uterine contractions HPI: with SIUP @ 38w6d c/o UC's +FM denies VB/LOF/FLEMING/vis changes history: : 3 Term: 1 : 0 Abortus: 1 Living children: 1 Complications (prev preg): none Previous : none Current : Admission EGA (weeks) 38 Admission EGA (days) 5 Past History Past Medical History: Reports: Kidney disease/stones. Denies: Alcoholism/subst abuse, Anemia, Arthritis, Asthma, Atrial fibrillation, Cancer, Congestive heart failure, COPD, Coronary artery disease, Dementia, Depression/mood disorder, Diabetes mellitus, GERD/gastritis, Hypertension, Seizure disorder, Transient ischemic attack, ===== , Abdominal aortic aneurysm, ADD/ADHD, AIDS, Angina pectoris , Anticoagulant therapy, Atrial flutter, Bleeding disorder, BPH, C diff colitis, Cardiac dysrhythmias, Chronic pain, Cirrhosis, Congenital anomalies, Dyslipidemia, Gallbladder dis/stones, GI bleed, Glaucoma, Headache disorder, Hepatitis, HIV, Intracranial hemorrhage, Ischemic stroke, Motor dysfunction, Pancreatitis, Peptic ulcer disease, Periph arterial disease, Pressure ulcer, Prior NC, Schizophrenia, Sickle cell disease, Steroid use, Thyroid disorder, Transfusion history, Tuberculosis, Urinary tract infection, Venous thromboembolism. Past Surgical History: Reports: Lithotripsy. Denies: Abdominal surgery, Appendectomy, Bariatric procedure, CABG, Carotid endarterectomy, Cholecystectomy, , Dialysis shunt/AV fistula, Heart valve procedure, Hernia repair, Hysterectomy, Pacemaker, Spine surgery, Splenectomy, Tonsillectomy, Transplant recipient, Vascular procedure, , Amputation, Anesthesia complications, Bilateral tubal ligation, Bladder surgery, Breast biopsy/procedure, Carpal tunnel release, Cranial procedure, D C, Eye surgery, Feeding tube, Hip procedure , ICD, Indwelling IV catheter, Knee procedure, Lung surgery, Nephrectomy, PCI, Prostate surgery, Thyroidectomy, Tracheotomy, [employer] shunt. Additional Surgical History: dental implant I D of left leg Alcohol Use Denies EtOH use Drug Use Denies recreational drugs Smoking status: Smoking status for patients 13 years old or older: Never Smoker Medications: Home Medications: PNV WITH FE FUMARATE/FA () Allergies: Coded Allergies: Penicillins (Intermediate, DIARRHEA 02/16/21) Uncoded Allergies: vicryl (Intermediate, SWELLING 02/16/21) Review of Systems Constitutional: Denies: chills, fever, malaise. Skin: Denies: rash. Respiratory: Denies: SOB, wheezing. Cardiovascular: Denies: chest pain, palpitations. GI: Denies: diarrhea, nausea, vomiting. : Denies: dysuria, urgency. Neuro: Denies: dizziness, focal weakness, headache, lightheaded, numbness, seizure, spinning sensation, syncope, vision change, weakness. Psych: Denies: anxiety, depression. Objective General VS: PATIENT WEIGHT: Weight (lb): Weight (oz): Weight (kg): Physical Exam HEENT: normocephalic w/o injury Cardiac: regular rate and rhythm, no clinically sig murmur Lungs: clear to auscultation, unlabored breathing Breasts: deferred Neuro: Exam: alert, oriented x3, normal speech Abdomen: gravid, soft, no abnormal tenderness, no guarding, no rebound tenderness, normoactive bowel sounds Uterine activity: Monitor: toco Frequency (description): regular Frequency (minutes): 2 Pelvic exam: Pelvis clinically adequate: yes Membranes: Membranes: Intact Lower extremities: Edema: trace Calf tenderness: negative Baby A: Baby A baseline: 150 bpm Baby A variability: moderate 6-25 bpm Baby A accelerations: 15 X 15 Baby A decelerations: none Baby A FHR category: category 1 Result Findings/Data: Laboratory Tests: 02/16 02/16 1820 1812 Hematology WBC (6.5 - 12.3 K/mm3) 14.6 H RBC (3.51 - 4.69 M/mm3) 4.02 Hgb (10.1 - 13.8 g/dL) 11.2 Hct (32.5 - 41.8 %) 34.3 MCV (84.6 - 96.6 fL) 85.3 MCH (27.3 - 33.9 pg) 27.9 MCHC (32.0 - 34.2 gm/dL) 32.7 RDW (12.2 - 16.3 %) 15.2 Plt Count (134 - 363 K/mm3) 263 MPV (9.2 - 12.7 fL) 9.5 Neut % (Auto) (57.9 - 77.3 %) 74.7 Lymph % (Auto) (14.5 - 29.7 %) 12.7 L [place] % (Auto) (3.6 - 10.2 %) 9.6 Eos % (Auto) (0.0 - 3.0 %) 1.2 Baso % (Auto) (0.1 - 0.9 %) 0.3 Neut # (Auto) (K/mm3) 10.9 Lymph # (Auto) (K/mm3) 1.9 [place] # (Auto) (K/mm3) 1.4 Eos # (Auto) (K/mm3) 0.17 Baso # (Auto) (K/mm3) 0.0 Serology Treponema pallidum Ab (NONREACTIVE) NONREACTIVE Hep Bs Antigen (NONREACTIVE) NONREACTIVE Hepatitis C Antibody (NONREACTIVE) NONREACTIVE Hep C Ab Signal/Cutoff (<0.80) 0.02 HIV 1 2 Antibody (NONREACTIVE) NONREACTIVE SARS-CoV-2 Ag (Rapid) (NEGATIVE) NEGATIVE Results: labs reviewed, vital signs stable Diagnosis, Assessment Plan Diagnosis, Assessment Plan Problem List/A P: 1. with 38 completed weeks gestation 2. Spontaneous onset of labor 3. GBS (group B Streptococcus carrier), +RV culture, currently Assessment/Impression: spont.active labor<39 wks, reassuring status Plan: admit to inpatient, delivery, transfer to [facility], begin antibiotic therapy Consultation(s): Consultation performed: anesthesia at 7102 RPT #:[id number] [facility] OF REPORT [facility] 2020-10-[facility] 12:59:00 [facility] ([facility]) PRANAV Evaluation Note REPORT#:[id number] REPORT STATUS: Signed DATE:10/17/20 TIME: 1259 PATIENT: CARLY OMALLEY UNIT #: [id number] ROOM/BED: : 87 AGE: 35 SEX: F ATTEND: Faraz Shen MD ADM AUTHOR: Tonya Coronel MD * ALL edits or amendments must be made on the electronic/computer document * PRANAV History Notes: 35 yo edc 02/24 at 21.3 wks presents for n/v started at 3am and diarrhea 5am. Diarrhea mostly loose stools, vomited "bile", PB and toast and even sips of water. Denies headache, visual changs or ruq pain. no fever, chills, sick contact. Currently denies any pain. no ob complaints. pos fm. med: anxiety, IBS obhx: x 1 at term, sab x 1 meds: pepcid daily, , ekta, probotic. Allergies Allergy Severity Reaction Updated Coded Penicillins Intermediate DIARRHEA 09/02/18 Allergies Coded Allergies: Penicillins (Intermediate, DIARRHEA 09/02/18) Review of Systems Constitutional: Denies: chills, fatigue, fever, generalized weakness. Eyes: Denies: visual loss/blurred. Respiratory: Denies: non productive cough, productive cough (sputum), SOB, wheezing. Cardiovascular: Denies: chest pain. GI: Reports: abdominal pain, diarrhea, nausea, vomiting. : Reports: pelvic pain, . Denies: flank pain, frequency, hematuria, urgency, urinary retention, vaginal bleeding, vaginal discharge. Neuro: Denies: headache, lightheaded, numbness, seizure, syncope, unable to speak. Objective General VS: PATIENT WEIGHT: Weight (lb): Weight (oz): Weight (kg): 120/70 on tracing, afeb per RN. no data from cpn Physical Exam HEENT: normocephalic w/o injury Neuro: Exam: alert, oriented x3, normal speech Abdomen: gravid, soft, no abnormal tenderness, no guarding, no rebound tenderness Uterine activity: Monitor: toco Frequency (description): none Pelvic exam: Pelvis clinically adequate: deferred FHR evaluation: Notes: spot check 150s Membranes: Membranes: Intact Lower extremities: Edema: none Results Findings/Data: Laboratory Tests: 10/17 1222 Chemistry Sodium (135 - 145 mEq/L) 132 L Potassium (3.5 - 5.0 mEq/L) 3.8 Chloride (100 - 115 mEq/L) 100 Carbon Dioxide (22 - 31 mEq/L) 24 Anion Gap (10 - 20) 11.50 BUN (7 - 18 mg/dL) 11 Creatinine (0.5 - 1.0 mg/dL) 0.5 Glomerular Filtr Rate (>60 ml/min) 142 Glucose (65 - 110 mg/dL) 77 Calcium (8.4 - 10.2 mg/dL) 8.1 L Total Bilirubin (0.2 - 1.0 mg/dL) 0.4 AST (15 - 37 units/L) 19 ALT (12 - 78 units/L) 17 Total Alk Phosphatase (46 - 116 units/L) 78 Total Protein (6.3 - 8.2 gm/dL) 6.4 Albumin (3.4 - 4.8 gm/dL) 2.9 L Hematology WBC (6.5 - 12.3 K/mm3) 10.8 RBC (3.51 - 4.69 M/mm3) 4.11 Hgb (10.1 - 13.8 g/dL) 12.2 Hct (32.5 - 41.8 %) 37.1 MCV (84.6 - 96.6 fL) 90.3 MCH (27.3 - 33.9 pg) 29.7 MCHC (32.0 - 34.2 gm/dL) 32.9 RDW (12.2 - 16.3 %) 13.5 Plt Count (134 - 363 K/mm3) 273 MPV (9.2 - 12.7 fL) 9.3 Neut % (Auto) (57.9 - 77.3 %) 88.8 H Lymph % (Auto) (14.5 - 29.7 %) 5.6 L [place] % (Auto) (3.6 - 10.2 %) 4.4 Eos % (Auto) (0.0 - 3.0 %) 0.5 Baso % (Auto) (0.1 - 0.9 %) 0.2 Neut # (Auto) (K/mm3) 9.6 Lymph # (Auto) (K/mm3) 0.6 [place] # (Auto) (K/mm3) 0.5 Eos # (Auto) (K/mm3) 0.05 Baso # (Auto) (K/mm3) 0.0 Diagnosis, Assessment Plan Diagnosis, Assessment Plan Free Text A P: 21.3 wks with episode of n/v/d since this AM. low suspicion for pec/ gall bladder path Labs and clinical exam wnl. mild hyponatremia- likely related to symptoms. will do zofran iv, trial of po, if tolerating, okay to d/c home for f/u with pcp /ob. at 1847 RPT #:[id number] END OF REPORT [facility] 2020-09-06 22:15:00 [facility] ([facility]) EMERGENCY PROVIDER REPORT REPORT#:[id number] REPORT STATUS: Signed DATE:09/06/20 TIME: 2214 PATIENT: CARLY OMALLEY UNIT #: [id number] ROOM/BED: AGE: 35 SEX: F PCP PHYS: Faraz Shen MD SERVICE AUTHOR: Jemal Dick MD * ALL edits or amendments must be made on the electronic/computer document * HPI-General Illness Free Text HPI Notes Free Text HPI Notes 35 yrs old female c/o nausea, vomiting x 2 days. No abd pain. General Confirmed Patient Yes Patient Type New patient Initial Greet Date/Time 09/06/202015 Presentation Chief Complaint Vomiting Hx Obtained From Patient Sudden in Onset? Yes Onset Occurred Days ago Symptom Duration Since onset Progression since Onset Intermittent, Waxes and wanes Location Abdomen Quality Aching Radiation Abdomen. Severity: Onset Pain level 0 out of 10, Pain level 7 out of 10 Severity: Current Pain level 0 out of 10, Pain level 3 out of 10 Associated with Reports: Chest pain. Associated Other Pt denies other symptoms Exacerbated by Moving affected area Relieved by Nothing Review of Systems ROS Statements All systems rev neg except as marked. Complete sys rev neg except as marked. Review of Systems GI Reports: Nausea, Vomiting. Past Medical History - Adult Stated Complaint n/v/d 15wks Allergies Coded Allergies: Penicillins (Intermediate, DIARRHEA 09/02/18) Home Medications Discontinued Scripts HYDROcodone/APAP (NORCO 5/325) 1 TAB PO Q3H PRN PRN MODERATE PAIN (SCORE 4 - 6) HYDROcodone/APAP (NORCO 5/325) 1 TAB PO Q3H PRN PRN MODERATE PAIN (SCORE 4 - 6) #30 TAB Prov: 09/05/18 DC: 09/06/202109 Therapy completed IBUPROFEN (MOTRIN) 600 MG PO Q6H PRN PRN MILD PAIN NOT RELIEVED BY TYL. IBUPROFEN (MOTRIN) 600 MG PO Q6H PRN PRN MILD PAIN NOT RELIEVED BY TYL. #30 TAB Prov: 09/05/18 DC: 09/06/202109 Therapy completed Reported Medications PROMETHAZINE (PHENERGAN) 25 MG PO Q6H PRN PRN NAUSEA/VOMITING PNV WITH FE FUMARATE/FA () Discontinued Reported Medications LACTOBACILLUS ACIDOPHILUS (PROBIOTIC ACIDOPHILUS) 1 CAP PO DAILY CETIRIZINE (ZyrTEC) 10 MG PO DAILY Calculated Suicide Risk (nurs) No risk Review of Nursing Notes Rev avail, and agree Smoking status: Smoking status for patients 13 years old or older: Never Smoker Physical Exam Vital Signs Vital Signs First Documented: Result Date Time Pulse Ox 100 09/06 2016 B/P 130/89 09/06 2016 B/P Mean 102 09/06 2016 O2 Delivery Room air 09/06 2016 Temp 36.3 09/06 2016 Pulse 126 09/06 2016 Resp 16 09/06 2016 Last Documented: Result Date Time Pulse Ox 100 09/06 2250 B/P 114/67 09/06 2250 B/P Mean 82 09/06 2250 O2 Delivery Room air 09/06 2250 Temp 36.7 09/06 2250 Pulse 103 09/06 2250 Resp 16 09/06 2250 Review of Vital Signs Reviewed Physical Exam General/Const General/Const Awake, Alert, Well appearing Ears/Nose/Throat Ears/Nose/Throat Airway patent, Mucous membranes moist, Pharynx NL Resp/Chest Respiratory/Chest Breath sounds NL, Breath sounds = bilat, No respiratory distress, No rales, No rhonchi, No wheezing Cardiovascular Cardiovascular Heart rate NL, Regular rhythm, Heart sounds NL, Cap refill not delayed, Peripheral circulation NL Abdomen/GI Abdomen/GI Soft, Non-tender, No guarding, No rebound Lymphatic Lymphatic No gross adenopathy MS Upper Extrem Upper Extremity/MS Inspection NL, No swelling, Non-tender, No erythema, No deformity, Neurologic intact, Vascular intact, No clubbing/cyanosis MS Wrist/Hand Wrist/Hand Inspection NL, No swelling, No erythema, Non-tender, No deformity, Neurologic intact, Vascular intact, No clubbing/cyanosis MS Lower Extrem Lower Ext/Pelvis/MS Inspection NL, No swelling, Non-tender, No erythema, No deformity, Neurologic intact, Vascular intact, No edema MS Ankle/Foot Ankle/Foot Inspection NL, No swelling, No erythema, Non-tender, No deformity, Neurologic intact, Vascular intact, No edema Skin Skin Color NL, Warm, Dry, Turgor NL Neurologic Neurologic Oriented X3, Speech NL, No motor deficits, No sensory deficits Psychiatric Psychiatric Affect NL, Mood NL, Thought content NL Interpretation Diagnostics Lab Results Interpretation Results Laboratory Tests 09/06/202031: [Embedded Image Not Available] Laboratory Tests: 09/06 Chemistry Sodium (135 - 145 mEq/L) 135 Potassium (3.5 - 5.0 mEq/L) 3.8 Chloride (100 - 115 mEq/L) 100 Carbon Dioxide (22 - 31 mEq/L) 22 Anion Gap (10 - 20) 16.70 BUN (7 - 18 mg/dL) 9 Creatinine (0.5 - 1.0 mg/dL) 0.6 Glomerular Filtr Rate (>60 ml/min) 115 Glucose (65 - 110 mg/dL) 85 Calcium (8.4 - 10.2 mg/dL) 8.5 Total Bilirubin (0.2 - 1.0 mg/dL) 0.4 AST (15 - 37 units/L) 20 ALT (12 - 78 units/L) 30 Total Alk Phosphatase (46 - 116 units/L) 46 Total Protein (6.3 - 8.2 gm/dL) 7.4 Albumin (3.4 - 4.8 gm/dL) 3.4 Hematology WBC (6.5 - 12.3 K/mm3) 8.7 RBC (3.51 - 4.69 M/mm3) 4.47 Hgb (10.1 - 13.8 g/dL) 13.5 Hct (32.5 - 41.8 %) 39.6 MCV (84.6 - 96.6 fL) 88.6 MCH (27.3 - 33.9 pg) 30.2 MCHC (32.0 - 34.2 gm/dL) 34.1 RDW (12.2 - 16.3 %) 13.1 Plt Count (134 - 363 K/mm3) 274 MPV (9.2 - 12.7 fL) 9.2 Neut % (Auto) (57.9 - 77.3 %) 88.2 H Lymph % (Auto) (14.5 - 29.7 %) 6.7 L [place] % (Auto) (3.6 - 10.2 %) 4.3 Eos % (Auto) (0.0 - 3.0 %) 0.3 Baso % (Auto) (0.1 - 0.9 %) 0.2 Neut # (Auto) (K/mm3) 7.6 Lymph # (Auto) (K/mm3) 0.6 [place] # (Auto) (K/mm3) 0.4 Eos # (Auto) (K/mm3) 0.03 Baso # (Auto) (K/mm3) 0.0 Miscellaneous Maternal Serum HCG 10951 Urines Urine Color (YELLOW) YELLOW Urine Appearance (CLEAR) CLEAR Urine pH (5 - 9) 6.0 Ur Specific [place] (1.001 - 1.035) 1.009 Urine Protein (NEG) NEGATIVE Urine Glucose (UA) (NEG) 3+ H Urine Ketones (NEG) 1+ H Urine Blood (NEG) NEG Urine Nitrite (NEG) NEG Urine Bilirubin (NEG) NEGATIVE Urine Urobilinogen (NEG mg/dL) NEGATIVE Ur Leukocyte Esterase (NEG) NEG Urine RBC (NONE SEEN #/hpf) NONE SEEN Urine WBC (NONE SEEN #/hpf) 0-2 Ur Epithelial Cells (RARE - FEW #/HPF) RARE Urine Bacteria (RARE - FEW /HPF) RARE Urine Mucus (NONE SEEN) RARE Lab Statement Laboratory studies reviewed and considered in the medical decision-making. Imaging Statement Radiographic studies reviewed and considered in the medical decision-making. Lab Imaging Statement Laboratory radiographic studies reviewed and considered in the medical decision-making. Point of Care Testing Pulse Oximetry Pulse Ox % 99 On: Room air Interpretation Interpreted by me, Pulse oximetry normal Time 1413 Re-Evaluation MDM Free Text MDM Notes Free Text MDM Notes 35 yrs old female c/o nausea, vomiting x 2 days. No abd pain. Hypermesis, nausea, vomiting, dehydration. Normal cbc, cmp, ua, lipase. Iv fluid x 2, iv zofran x 1, iv pepcid x 1 , No bleeding No discharge. No trauma. Normal heart tone Pt felt better d/c home with ob follow up. ER precautions given. ED Course Medication(s) Ordered Medication(s) Ordered: Electrolytic, Caloric, And Vj Sig/Ange Start time Last Medication Dose Route Stop Time Status Admin Dextrose/Sodium 1,000 ML X1ED STA 09/06 2018 DC 09/06 Chloride IV 09/06 Sodium Chloride 1,000 ML X1ED STA 09/06 2018 DC /07 IV 09/06 Gastrointestinal Drugs Sig/Ange Start time Last Medication Dose Route Stop Time Status Admin Ondansetron HCl 4 MG ONCE ONE 09/06 2029 DC / IV 09/06 Famotidine 20 MG X1ED STA 09/06 2018 DC 09/06 IV 09/06 Consultation Consultation Referral/Consult Name Hermelinda Whittaker MD Radiation Control Technician Called ICT SECURITY SPECIALIST, On-call physician Requested Call Time 2221 Requested Call Date 09/06/20 Call Returned Call returned Call Returned Time 2221 Call Returned Date 09/06/20 Radiation Control Technician Will see patient, Will see in office, Agrees with eval Free Text Consult Notes ok to go home, follow up in the office. Patient Discharge Departure Vital Signs/Condition Vital Signs First Documented: Result Date Time Pulse Ox 100 09/06 2016 B/P 130/89 09/06 2016 B/P Mean 102 09/06 2016 O2 Delivery Room air 09/06 2016 Temp 36.3 09/06 2016 Pulse 126 09/06 2016 Resp 16 09/06 2016 Last Documented: Result Date Time Pulse Ox 100 09/06 2250 B/P 114/67 09/06 2250 B/P Mean 82 09/06 2250 O2 Delivery Room air 09/06 2250 Temp 36.7 09/06 2250 Pulse 103 09/06 2250 Resp 16 09/06 2250 All vital signs available at the time of this entry have been reviewed. Condition Stable, Improved Clinical Impression Clinical Impression Primary Impression: Hyperemesis Secondary Impressions: Nausea vomiting, Time of Impression 2214 Disposition Decision Discharge )( Discharged to Home Yes )( Time 2214 )( Date 09/06/20 Discharge/Care Plan Counseled Regarding Diagnosis, Lab results, Imaging studies, Prescriptions, When to return to ED, Alcohol cessation Rx Drug Database Reviewed Yes (Auto) Prescriptions Current Visit Scripts PROMETHAZINE (PHENERGAN) 25 MG RECTAL Q4H PRN PRN NAUSEA/VOMITING PROMETHAZINE (PHENERGAN) 25 MG RECTAL Q4H PRN PRN NAUSEA/VOMITING #30 SUPP ONDANSETRON ODT (ZOFRAN ODT) 4 MG PO Q6H PRN PRN NAUSEA/VOMITING ONDANSETRON ODT (ZOFRAN ODT) 4 MG PO Q6H PRN PRN NAUSEA/VOMITING #30 TABS Prescriptions Reviewed Risks, Benefits, Alternative treatment Patient Instructions ED Hyperemesis Gravidarum Referrals Denis Patel MD Departure Forms WORK/SCHOOL EXCUSE VARIABLE Advance Care Planning Documents Reviewed With patient Discharge Note I have spoken with the patient and/or caregivers. I have explained the patient's condition, diagnoses and treatment plan based on the information available to me at this time. I have answered the patient's and/or caregiver's questions and addressed any concerns. The patient and/or caregivers have as good an understanding of the patient's diagnosis, condition and treatment plan as can be expected at this point. The vital signs have been stable. The patient's condition is stable and appropriate for discharge from the emergency department. The patient will pursue further outpatient evaluation with the primary care physician or other designated or consulting physician as outlined in the discharge instructions. The patient and/or caregivers are agreeable to this plan of care and follow-up instructions have been explained in detail. The patient and/or caregivers have received these instructions in written format and have expressed an understanding of the discharge instructions. The patient and/or caregivers are aware that any significant change in condition or worsening of symptoms should prompt an immediate return to this or the closest emergency department or a call to 911. Quality Measures BP F/U for HTN F/u with PCP/other doc Preg Test for Women w/Abd Pain Female age 14-50, Known to be Smoking Cessation Screened, non user Tobacco Screening/Cessation 18 years or older, Denies tobacco use at 1415 RPT #:[id number] END OF REPORT [facility] 2018-09-05 09:49:00 [facility] ([facility]) OB Postpart Progr Note REPORT#:[id number] REPORT STATUS: Signed DATE:09/05/18 TIME: 948 PATIENT: CARLY OMALLEY UNIT #: [id number] ROOM/BED: : 87 AGE: 33 SEX: F ATTEND: Faraz Shen MD ADM AUTHOR: Margot Fuentes MD * ALL edits or amendments must be made on the electronic/computer document * Subjective Subjective Comments: no c/o Objective General VS: Vital Signs: Date Time Temp Pulse Resp B/P B/P Pulse O2 O2 Flow FiO2 Mean Ox Delivery Rate 09/05 0043 98.2 94 18 112/76 88.1 09/04 1755 97.9 79 20 99/67 Physical Exam Neuro: Exam: alert, oriented x3, normal speech, normal gait Abdomen: soft, no abnormal tenderness, no guarding Incision site: none Uterus: firm, involution appropriate, non-tender Fundus: firm, below the umbilicus Lower extremities: Edema: trace Diagnosis, Assessment Plan Diagnosis, Assessment Plan Comments: PPD 2 -home. RV 6 wks. prec/restrictions d/w pt. eRx Motrin and [place]. OTC Colace prn at 0951 RPT #:[id number] END OF REPORT [facility] 2018-09-04 11:30:00 [facility] ([facility]) OB Postpart Progr Note REPORT#:[id number] REPORT STATUS: Signed DATE:09/04/18 TIME: 1130 PATIENT: CARLY OMALLEY UNIT #: [id number] ROOM/BED: : 87 AGE: 33 SEX: F ATTEND: Faraz Shen MD ADM AUTHOR: Rachelle Christy MD * ALL edits or amendments must be made on the electronic/computer document * Subjective Subjective Status/day: post (1) Comments: Pt reports soreness in bottom and perineal area - having difficulty sitting long in bed. Galo reg diet. Pain otherwise controlled. Voiding well. Bleeding min. Objective General VS: Laboratory Tests Test Result Date Time Blood Gas Capillary pH (7.35 - 7.45) 7.333 L 03/04 0318 Capillary pCO2 (mmHg) 38.3 09/03 317 Capillary pO2 (mmHg) 29.7 09/03 317 Capillary HCO3 (meq/L) 19.9 09/03 317 Capillary Base Excess -5.4 09/03 317 Capillary O2 Sat Calc (%) 52.7 09/03 317 Patient On Oxygen CBLV 09/03 317 FiO2 (%) 21.0 09/03 317 Hematology WBC (6.6 - 12.1 K/mm3) 10.2 09/02 0815 RBC (3.45 - 5.01 M/mm3) 4.13 09/02 0815 Hgb (10.7 - 13.9 g/dL) 11.5 09/03 0530 Hct (32.1 - 42.1 %) 35.6 09/03 629 MCV (84.1 - 94.8 fL) 91 09/02 914 MCH (27 - 35 pg) 29.1 09/02 914 MCHC (32.2 - 34.1 gm/dL) 32.0 L 09/02 914 RDW (12.4 - 16.5 %) 15.2 09/02 0815 Plt Count (133 - 385 K/mm3) 280 09/02 0815 MPV (9.1 - 12.7 fl) 10.2 09/02 0815 Neut % (Auto) (56.5 - 79.4 %) 73.9 09/02 914 Lymph % (Auto) (14.3 - 34.3 %) 15.5 09/02 914 [place] % (Auto) (5.1 - 10.4 %) 7.8 09/02 914 Eos % (Auto) (0.1 - 3.0 %) 1.0 09/02 914 Baso % (Auto) (0.1 - 1.0 %) 0.3 09/02 0815 Neut # (Auto) (K/mm3) 7.6 09/02 914 Lymph # (Auto) (K/mm3) 1.6 09/02 914 [place] # (Auto) (K/mm3) 0.8 09/02 914 Eos # (Auto) (K/mm3) 0.10 09/02 914 Baso # (Auto) (K/mm3) 0.0 09/02 914 Immature Plt Fraction (0.0 - 10.8 %) 0.0 09/02 914 Serology Treponema pallidum Ab (NONREACTIVE) NONREACTIVE 09/02 914 Hep Bs Antigen (NONREACTIVE) NONREACTIVE 09/02 914 Hepatitis C Antibody (NONREACTIVE) NONREACTIVE 09/02 914 Hep C Ab Signal/Cutoff (<0.80) 0.04 09/02 914 Vital Signs: Date Time Temp Pulse Resp B/P B/P Pulse O2 O2 Flow FiO2 Mean Ox Delivery Rate 09/04 0900 98.4 93 20 111/76 09/03 1724 98.5 105 18 127/82 Physical Exam Abdomen: soft, no abnormal tenderness, no guarding Uterus: firm, involution appropriate, non-tender Fundus: below the umbilicus Diagnosis, Assessment Plan Diagnosis, Assessment Plan Assessment: nml progress Plan: routine care, circumcision today, discharge tomorrow, donut pillow Plan discussed with: patient, spouse/partner at 1132 RPT #:[id number] END OF REPORT [facility] 2018-09-03 03:39:00 [facility] ([facility]) OB Delivery Note REPORT#:[id number] REPORT STATUS: Signed DATE:09/03/18 TIME: 033 PATIENT: CARLY OMALLEY UNIT #: [id number] ROOM/BED: [address] : 87 AGE: 33 SEX: F ATTEND: Faraz Shen MD ADM AUTHOR: Tonya Coronel MD * ALL edits or amendments must be made on the electronic/computer document * OB Delivery Nursing Documentation Review Nursing data: The data set between the solid lines has been imported from nursing documentation. Any exceptions have been noted below under Provider comments. _ ROM date: 09/02/18 ROM time: 529 Membranes rupture method: SROM Amniotic fluid color: Clear Amniotic fluid amount: EGA (weeks/days): 39.3 EGA at admit (weeks): EGA at delivery (weeks): Steroids prior to arrival: Antibiotic prophylaxis given: evaluation at delivery: Delivery date A: 09/03/18 Delivery time infant A: 0302 Birthweight (gm) infant A: Weight (lb) infant A: Weight (oz) infant A: Gender infant A: Male 1 minute A: 5 minutes infant A: 10 minutes A: Cord pH obtained A: Vacuum time A: Vacuum # pulls infant A: Vacuum # popoffs infant A: __ Provider comments on imported nursing data: [] Pre-delivery GBS status: GBS status: negative [place] evaluation at delivery: NRP 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, 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 General VS: Last Documented: Result Date Time B/P Mean 93.0 09/03 0247 B/P 148/65 09/03 0247 Pulse 120 09/03 0247 Temp 100.0 09/03 0147 Resp 16 09/02 1752 Amniotic fluid: terminal mec Baby A Information Baby A information Delivery date: 09/03/18 Delivery time: 0302 status: live born Wt of baby (grams): 3620 Gender: male ABG details Baby A Cord blood gases: collected Nuchal cord Baby A Nuchal cord: yes (loose and reduced) Additional comments: RN called due to fhr MD in to check pt, discussed fhr pattern, poss need for operative delivery due to variables and tachycardia, however pt was able to bring station down with subsequent pushing and then with 3rd ctx set over intact perineum. nuchal cord noted, loose and able to reduced at perineum, spont resistutation was allowed and then followed by delivery of shoulders with difficulty. delay cc employed, cord cut and baby handed to rn to warmer gas collected Laboratory Tests 09/038 0316 Blood Gas Capillary pH (7.35 - 7.45) 7.333 L 7.089 *L Capillary pCO2 (mmHg) 38.3 80.1 Capillary pO2 (mmHg) 29.7 20.1 Capillary HCO3 (meq/L) 19.9 23.7 Capillary Base Excess -5.4 -8.0 Capillary O2 Sat Calc (%) 52.7 18.9 Patient On Oxygen CBLV CBLA FiO2 (%) 21.0 21.0 partial 3rd degree/ attentuated sphrincter repaired with 0-vircyl rest of repair done with 2-0 vircyl placenta delivered intact and spont. good hemostasis Vaginal Delivery Vaginal delivery Labor: augmented Medications/Devices used: oxytocin Vaginal delivery: spontaneous Amniotic fluid: meconium (terminal ) Anesthesia type: epidural anesthesia Episiotomy: none Episiotomy repair: no Laceration repair: yes Episiotomy/laceration suture: 0-0, 2-0 EBL (ml's): 350 Hemorrhage: no Placenta: spontaneous, expressed, intact, sent to pathology Post delivery meds used: oxytocin Count: correct, vag exam neg for sponges Mother's condition: mother stable 's condition: stable in room (after santana assessment ) Lacerations: Perineal laceration: 3rd degree (attenuated sphrincter) Perineal lac location: fourchette High vaginal laceration: no Shoulder dystocia Shoulder dystocia present: no at 0349 RPT #:[id number] END OF REPORT [facility] 2018-09-03 03:39:00 [facility] ([facility]) OB Delivery Note REPORT#:[id number] REPORT STATUS: Signed DATE:09/03/18 TIME: 338 PATIENT: CARLY OMALLEY UNIT #: [id number] ROOM/BED: [address] : 87 AGE: 33 SEX: F ATTEND: Faraz Shen MD ADM AUTHOR: Tonya Coronel MD * ALL edits or amendments must be made on the electronic/computer document * See Addendum OB Delivery Nursing Documentation Review Nursing data: The data set between the solid lines has been imported from nursing documentation. Any exceptions have been noted below under Provider comments. _ ROM date: 09/02/18 ROM time: 0530 Membranes rupture method: SROM Amniotic fluid color: Clear Amniotic fluid amount: EGA (weeks/days): 39.3 EGA at admit (weeks): EGA at delivery (weeks): Steroids prior to arrival: Antibiotic prophylaxis given: [place] evaluation at delivery: Delivery date A: 09/03/18 Delivery time infant A: 0302 Birthweight (gm) infant A: Weight (lb) infant A: Weight (oz) infant A: Gender infant A: Male 1 minute A: 5 minutes A: 10 minutes infant A: Cord pH obtained infant A: Vacuum time infant A: Vacuum # pulls A: Vacuum # popoffs infant A: __ Provider comments on imported nursing data: [] Pre-delivery GBS status: GBS status: negative [place] evaluation at delivery: NRP 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, 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 General VS: Last Documented: Result Date Time B/P Mean 93.0 09/03 0247 B/P 148/65 09/03 246 Pulse 120 09/03 246 Temp 100.0 09/03 0147 Resp 16 09/02 1752 Amniotic fluid: terminal mec Baby A Information Baby A information Delivery date: 09/03/18 Delivery time: 030 status: live born Wt of baby (grams): 3620 Gender: male ABG details Baby A Cord blood gases: collected Nuchal cord Baby A Nuchal cord: yes (loose and reduced) Additional comments: RN called due to fhr MD in to check pt, discussed fhr pattern, poss need for operative delivery due to variables and tachycardia, however pt was able to bring station down with subsequent pushing and then with 3rd ctx set over intact perineum. nuchal cord noted, loose and able to reduced at perineum, spont resistutation was allowed and then followed by delivery of shoulders with difficulty. delay cc employed, cord cut and baby handed to rn to warmer gas collected Laboratory Tests 09/03 09/03 0318 0316 Blood Gas Capillary pH (7.35 - 7.45) 7.333 L 7.089 *L Capillary pCO2 (mmHg) 38.3 80.1 Capillary pO2 (mmHg) 29.7 20.1 Capillary HCO3 (meq/L) 19.9 23.7 Capillary Base Excess -5.4 -8.0 Capillary O2 Sat Calc (%) 52.7 18.9 Patient On Oxygen CBLV CBLA FiO2 (%) 21.0 21.0 partial 3rd degree/ attentuated sphrincter repaired with 0-vircyl rest of repair done with 2-0 vircyl placenta delivered intact and spont. good hemostasis Vaginal Delivery Vaginal delivery Labor: augmented Medications/Devices used: oxytocin Vaginal delivery: spontaneous Amniotic fluid: meconium (terminal ) Anesthesia type: epidural anesthesia Episiotomy: none Episiotomy repair: no Laceration repair: yes Episiotomy/laceration suture: 0-0, 2-0 EBL (ml's): 350 Hemorrhage: no Placenta: spontaneous, expressed, intact, sent to pathology Post delivery meds used: oxytocin Count: correct, vag exam neg for sponges Mother's condition: mother stable 's condition: stable in room (after santana assessment ) Lacerations: Perineal laceration: 3rd degree (attenuated sphrincter) Perineal lac location: fourchette High vaginal laceration: no Shoulder dystocia Shoulder dystocia present: no at 0349 Addendum 1: 09/03/18 0350 by Tonya oCronel MD apgars 3,8 at 0350 RPT #:[id number] END OF REPORT [facility] 2018-09-03 01:37:00 [facility] ([facility]) Clinical Note REPORT#:[id number] REPORT STATUS: Signed DATE:09/03/18 TIME: 013 PATIENT: CARLY OMALLEY UNIT #: [id number] ROOM/BED: [address] : 87 AGE: 33 SEX: F ATTEND: Faraz Shen MD ADM AUTHOR: Tonya Coronel MD * ALL edits or amendments must be made on the electronic/computer document * Clinical Note Note: rn update complete/+2 pt with urge and pressure in to check pt Last Documented: Result Date Time B/P Mean 88.0 / 0147 B/P 135/61 / 0147 Temp 100.0 / 0147 Pulse 122 / 0147 Resp 16 09/02 1752 Vital Signs Date Temp Pulse Resp B/P B/P Mean Pulse Ox FiO2 09/02-/ 97.7-100.0 74-123 16-18 91-138/53-96 68.0-112.0 NAD sve complete, station +1, SONIA ext nt b/l toco external ctx q 2-3 minutes efm 150s, good variability, variables with pushing with spont recovery a/p 2nd stage of labor cont pushing with urge anticipate delivery at 0213 RPT #:[id number] END OF REPORT [facility] 2018-09-02 21:20:00 [facility] ([facility]) OB Intrapart Prog Note REPORT#:[id number] REPORT STATUS: Signed DATE:09/02/18 TIME: 2119 PATIENT: CARLY OMALLEY UNIT #: [id number] ROOM/BED: [address] : 87 AGE: 33 SEX: F ATTEND: Faraz Shen MD ADM AUTHOR: Tonya Coronel MD * ALL edits or amendments must be made on the electronic/computer document * Subjective Subjective Comments: in to check pt reports feeling comfortable per RN, external toco not picking up ctx well with positional changes Objective Nursing Documentation Review Nursing data: The data set between the solid lines has been imported from nursing documentation. Any exceptions have been noted below under Provider comments. __ ROM date: 09/02/18 ROM time: 529 __ Provider comments on imported nursing data: [] Objective VS: Vital Signs Date Time Temp Pulse Resp B/P B/P Pulse O2 O2 Flow FiO2 Mean Ox Delivery Rate 09/02 2045 95.0 09/02 2045 85 122/77 09/02 2030 73.0 09/02 2030 92 99/57 09/02 2029 68.0 09/02 2029 103 91/54 09/03 2015 75.0 09/03 2015 85 108/55 09/02 2000 75.0 09/02 2000 88 105/62 03/03 1946 75.0 03/03 1946 100 101/60 03/03 1931 76.0 03/03 1931 82 103/59 03/03 1916 98.0 03/03 1916 83 124/81 03/03 1900 93.0 03/03 1900 88 117/78 03/03 1846 85.0 03/03 1846 79 112/70 03/03 1831 106.0 03/03 1831 79 127/92 03/03 1817 98.0 03/03 1817 80 123/82 03/03 1800 93.0 03/03 1800 80 117/83 03/03 1752 98.2 16 03/03 1746 69.0 03/03 1746 90 94/53 03/03 1730 72.0 03/03 1730 89 93/58 03/03 1716 80.0 03/03 1716 98 107/66 03/03 1701 88.0 03/03 1701 100 134/63 03/03 1646 82.0 03/03 1646 90 114/61 03/03 1621 79.0 03/03 1621 93 114/55 03/03 1615 76.0 03/03 1615 98.3 82 106/60 03/03 1613 78.0 03/03 1613 90 106/62 03/03 1609 100.0 03/03 1609 90 125/84 03/03 1602 90.0 03/03 1602 87 125/71 03/03 1523 98.0 03/03 1523 74 131/82 03/03 1329 97.7 18 03/03 1256 98.2 17 03/03 1140 98.1 03/03 1040 96.0 03/03 1040 98.0 79 129/76 Cervical/ exam: Dilatation (cm): 4 Effacement (%): 90 station: - 2 presentation: cephalic Uterine activity: Monitor: IUPC (placed without difficulty) Current oxytocin: Indication: augmentation (20) Procedures: intrauterine press cath FHR Evaluation Baby A: Baby A baseline: 140 bpm Baby A variability: moderate 6-25 bpm Baby A decelerations: early Baby A FHR category: category 2 Diagnosis, Assessment Plan Free Text A P: term prom on pit afeb, overall status reassuring iupc placed, titrate pit to adequate mvus cont management anticipate active labor at 2129 RPT #:[id number] END OF REPORT [facility] 2018-09-02 16:36:00 [facility] ([facility]) OB Intrapart Prog Note REPORT#:[id number] REPORT STATUS: Signed DATE:09/02/18 TIME: 1636 PATIENT: CARLY OMALLEY UNIT #: [id number] ROOM/BED: [address] : 87 AGE: 33 SEX: F ATTEND: Faraz Shen MD ADM AUTHOR: Tonya Coronel MD * ALL edits or amendments must be made on the electronic/computer document * Subjective Subjective Comments: ctx more intense. s/p epidural, benitez Objective Nursing Documentation Review Nursing data: The data set between the solid lines has been imported from nursing documentation. Any exceptions have been noted below under Provider comments. __ ROM date: 09/02/18 ROM time: 0530 __ Provider comments on imported nursing data: [] Objective VS: Vital Signs Date Time Temp Pulse Resp B/P B/P Pulse O2 O2 Flow FiO2 Mean Ox Delivery Rate 09/02 1523 98.0 09/02 1523 74 131/82 09/02 1329 97.7 18 09/02 1256 98.2 17 09/02 1140 98.1 09/02 1040 96.0 / 1040 98.0 79 129/76 / 0814 98.8 18 09/02 0814 104.0 09/02 0814 100 135/82 Cervical/ exam: Dilatation (cm): 4 Effacement (%): 85 station: - 2 presentation: cephalic Pelvis exam: Clinically adequate for this fetus: yes Current oxytocin: Indication: augmentation (16) FHR Evaluation Baby A: Baby A baseline: 140 bpm Baby A variability: moderate 6-25 bpm Baby A accelerations: 15 X 15 Baby A FHR category: category 1 Result Findings/Data: Laboratory Tests: 09/02 09 Hematology WBC (6.6 - 12.1 K/mm3) 10.2 RBC (3.45 - 5.01 M/mm3) 4.13 Hgb (10.7 - 13.9 g/dL) 12.0 Hct (32.1 - 42.1 %) 37.5 MCV (84.1 - 94.8 fL) 91 MCH (27 - 35 pg) 29.1 MCHC (32.2 - 34.1 gm/dL) 32.0 L RDW (12.4 - 16.5 %) 15.2 Plt Count (133 - 385 K/mm3) 280 MPV (9.1 - 12.7 fl) 10.2 Neut % (Auto) (56.5 - 79.4 %) 73.9 Lymph % (Auto) (14.3 - 34.3 %) 15.5 [place] % (Auto) (5.1 - 10.4 %) 7.8 Eos % (Auto) (0.1 - 3.0 %) 1.0 Baso % (Auto) (0.1 - 1.0 %) 0.3 Neut # (Auto) (K/mm3) 7.6 Lymph # (Auto) (K/mm3) 1.6 [place] # (Auto) (K/mm3) 0.8 Eos # (Auto) (K/mm3) 0.10 Baso # (Auto) (K/mm3) 0.0 Immature Plt Fraction (0.0 - 10.8 %) 0.0 Serology Treponema pallidum Ab (NONREACTIVE) NONREACTIVE Hep Bs Antigen (NONREACTIVE) NONREACTIVE Hepatitis C Antibody (NONREACTIVE) NONREACTIVE Hep C Ab Signal/Cutoff (<0.80) 0.04 Diagnosis, Assessment Plan Free Text A P: prom on pit augmentation afeb s/p epidural cont present management at 1638 RPT #:[id number] END OF REPORT [facility] 2018-09-02 10:14:00 [facility] ([facility]) OB Admission / H P REPORT#:[id number] REPORT STATUS: Signed DATE:09/02/18 TIME: 1014 PATIENT: CARLY OMALLEY UNIT #: [id number] ROOM/BED: [address] : 87 AGE: 33 SEX: F ATTEND: Faraz Shen MD ADM AUTHOR: Tonya Coronel MD * ALL edits or amendments must be made on the electronic/computer document * OB Admission H P Hx Notes: 33 yo at 39.3wks with prom since 5am 09/02. Reports no regular ctx. no vb. gbs negative care with Dr. Nic Orourke, reports uncomplicated course medhx: hx of kidney stone, ADD, IBS, hx of anxiety and depression suhx: lasik, lithotripy obhx: p0 gynhx: n/c famhx: osteoporosis, breast cancer, ovarian cancer, HTN, diabetes socialhx: , employed, no smoking, no drugs, no etoh allergy: PCN meds: Home Medications: Medication Dose/Rte/Freq Days Qty Entered Last Max Daily Dose Reviewed PNV WITH FE 09/02/18 FUMARATE/FA 0753 () Strength: 1 EACH TAB LACTOBACILLUS 1 CAP PO DAILY 09/02/18 ACIDOPHILUS 0753 (PROBIOTIC ACIDOPHILUS) Strength: 1 CAP CAP CETIRIZINE (ZyrTEC) 10 MG PO DAILY 09/02/18 Strength: 10 MG TAB 0753 Allergies Coded Allergies: Penicillins (Intermediate, DIARRHEA 09/02/18) Review of Systems Constitutional: Denies: chills, fatigue, generalized weakness, lethargy, malaise, recent wt loss. Skin: Denies: contusion, itching, laceration, rash, swelling. Allergy/Immun: Denies: allergic reaction, anaphylaxis, hives, itching, rhinorrhea, sneezing. Eyes: Denies: visual loss/blurred, eye pain. ENT: Denies: earache, hearing loss, toothache, voice change. Respiratory: Denies: non productive cough, productive cough (sputum), SOB, wheezing. Cardiovascular: Denies: LEE (dyspnea on exertion), palpitations. GI: Denies: abdominal pain, constipation, diarrhea, nausea, rectal pain, vomiting. : Reports: . Denies: flank pain, frequency, hematuria, urgency, urinary retention, vaginal discharge. Musculoskeletal: Denies: extremity pain, extremity swelling, joint swelling, neck pain. Neuro: Denies: bowel dysfunction, headache, lightheaded, numbness, seizure, unable to speak. Psych: depression (hx of, denies currently ). Denies: anxiety (hx of, denies currently ). Objective General VS: Last Documented: Result Date Time B/P Mean 96.0 09/02 1040 B/P 129/76 09/02 1040 Temp 98.0 09/02 1040 Pulse 79 09/02 1040 Resp 18 09/02 0814 Physical Exam HEENT: normocephalic w/o injury Neuro: Exam: alert, oriented x3, normal speech Abdomen: gravid, soft, no guarding, no rebound tenderness Uterine activity: Monitor: toco Frequency (description): regular Pelvic exam: Pelvis clinically adequate: RN exam 3/80/-3, vtx on exam at 1050 Cervical/ exam: Est wt (gms): 3400 presentation: cephalic Membranes: Membranes: SROM Lower extremities: Edema: trace Baby A: Baby A baseline: 140 bpm Baby A variability: moderate 6-25 bpm Baby A accelerations: 15 X 15 Baby A FHR category: category 1 Diagnosis, Assessment Plan Diagnosis, Assessment Plan Free Text A P: 33 yo at 39.3wks, prom since 5am 3/3 gbs negative admit for pit for term prom minimize vaginal exams epidural prn anticipate active labor poc d/w pt and RN at bedside, all questions addressed. at 1239 RPT #:[id number] END OF REPORT [facility] 2018-09-02 10:14:00 [facility] ([facility]) OB Admission / H P REPORT#:[id number] REPORT STATUS: Signed DATE:09/02/18 TIME: 1014 PATIENT: CARLY OMALLEY UNIT #: [id number] ROOM/BED: [address] : 87 AGE: 33 SEX: F ATTEND: Faraz Shen MD ADM AUTHOR: Tonya Coronel MD * ALL edits or amendments must be made on the electronic/computer document * See Addendum OB Admission H P Hx Notes: 33 yo at 39.3wks with prom since 5am 09/02. Reports no regular ctx. no vb. gbs negative care with Dr. Nic Orourke, reports uncomplicated course medhx: hx of kidney stone, ADD, IBS, hx of anxiety and depression suhx: lasik, lithotripy obhx: p0 gynhx: n/c famhx: osteoporosis, breast cancer, ovarian cancer, HTN, diabetes socialhx: , employed, no smoking, no drugs, no etoh allergy: PCN meds: Home Medications: Medication Dose/Rte/Freq Days Qty Entered Last Max Daily Dose Reviewed PNV WITH FE 09/02/18 FUMARATE/FA 0753 () Strength: 1 EACH TAB LACTOBACILLUS 1 CAP PO DAILY 09/02/18 ACIDOPHILUS 0753 (PROBIOTIC ACIDOPHILUS) Strength: 1 CAP CAP CETIRIZINE (ZyrTEC) 10 MG PO DAILY 09/02/18 Strength: 10 MG TAB 0753 Allergies Coded Allergies: Penicillins (Intermediate, DIARRHEA 09/02/18) Review of Systems Constitutional: Denies: chills, fatigue, generalized weakness, lethargy, malaise, recent wt loss. Skin: Denies: contusion, itching, laceration, rash, swelling. Allergy/Immun: Denies: allergic reaction, anaphylaxis, hives, itching, rhinorrhea, sneezing. Eyes: Denies: visual loss/blurred, eye pain. ENT: Denies: earache, hearing loss, toothache, voice change. Respiratory: Denies: non productive cough, productive cough (sputum), SOB, wheezing. Cardiovascular: Denies: LEE (dyspnea on exertion), palpitations. GI: Denies: abdominal pain, constipation, diarrhea, nausea, rectal pain, vomiting. : Reports: . Denies: flank pain, frequency, hematuria, urgency, urinary retention, vaginal discharge. Musculoskeletal: Denies: extremity pain, extremity swelling, joint swelling, neck pain. Neuro: Denies: bowel dysfunction, headache, lightheaded, numbness, seizure, unable to speak. Psych: depression (hx of, denies currently ). Denies: anxiety (hx of, denies currently ). Objective General VS: Last Documented: Result Date Time B/P Mean 96.0 09/02 1040 B/P 129/76 09/02 1040 Temp 98.0 09/02 1040 Pulse 79 09/02 1040 Resp 18 09/02 0814 Physical Exam HEENT: normocephalic w/o injury Neuro: Exam: alert, oriented x3, normal speech Abdomen: gravid, soft, no guarding, no rebound tenderness Uterine activity: Monitor: toco Frequency (description): regular Pelvic exam: Pelvis clinically adequate: RN exam 3/80/-3, vtx on exam at 1050 Cervical/ exam: Est wt (gms): 3400 presentation: cephalic Membranes: Membranes: SROM Lower extremities: Edema: trace Baby A: Baby A baseline: 140 bpm Baby A variability: moderate 6-25 bpm Baby A accelerations: 15 X 15 Baby A FHR category: category 1 Diagnosis, Assessment Plan Diagnosis, Assessment Plan Free Text A P: 33 yo at 39.3wks, prom since 5am 3 gbs negative admit for pit for term prom minimize vaginal exams epidural prn anticipate active labor poc d/w pt and RN at bedside, all questions addressed. at 1239 Addendum 1: 09/03/18 0359 by Tonya Coronel MD labs 0+ RNI hep b negative hiv negative RPR nr gc/chlam negative gbs negative gct negative at 0400 RPT #:[id number] END OF REPORT [facility]
[2024-08-28] MEDS ORDERED: DIAZEPAM 2 MG TABLET ONE (16:33)
[2024-08-28 16:40] LABS: Absolute Eosinophils 0.2 K/uL (0-0.5); Absolute Lymphocytes (CBC) 2.1 K/uL (0.7-4.9); Absolute Monocytes 0.6 K/uL (0.1-1.3); Absolute Neutrophil 3.7 K/uL (1.8-8.0); Basophils % 0.6 % (0-1.3); Eosinophils % 3.6 % (0-4.4); Hematocrit 37.8 % (36.0-45.0); Hemoglobin 13.1 g/dL (12.0-15.0); Lymphocytes % 31.2 % (15.3-44.8); MCH 30.7 pg (27.0-35.0); MCHC 34.6 g/dL (32.0-36.0); MCV 88.8 fL (80-100); MPV 7.4 fL (7.6-11.3); Monocytes % 8.3 % (3.3-12.3); Neutrophils % 56.3 % (41.7-73.7); Platelets 373 thou/uL (152-406); RBC Red Blood Cell Count 4.26 M/uL (3.86-4.86); Red Cell Distribution Width 13.1 % (12.1-15.2)
[2024-08-28 16:41] LABS: Specific Gravity 1.005 (1.005-1.030); Sqamous Epithelial <5 /HPF (None Seen); Urine Bacteria None Seen /HPF (<20); Urine Bilirubin NEGATIVE (Negative); Urine Blood Trace (Negative); Urine Clarity Clear (Clear); Urine Color Colorless (Yellow); Urine Culture Reflex Order NOT NEEDED; Urine Glucose NEGATIVE (Negative); Urine Ketones NEGATIVE (Negative); Urine Microscopic Reflex YN ORDER UMIC; Urine Nitrite NEGATIVE (Negative); Urine Protein NEGATIVE (Negative); Urine RBC <5 /HPF (None Seen); Urine Urobilinogen Normal (Normal); Urine WBC None Seen /HPF (<5)
[2024-08-28 16:57] LABS: Anion Gap 7.8 mEq/L (5.0-15.0); BUN Blood Urea Nitrogen 13 mg/dL (7-18); Bicarbonate 29 mEq/L (21-32); Glomerular Filtration Rate 112 ml/min (=/>90); Glucose Level 93 mg/dL (74-106); NT PRO-BNP 141 pg/mL (<125); Potassium 3.8 mEq/L (3.5-5.1); Sodium Level 138 mEq/L (136-145); Troponin High Sensitivity < 3.0 pg/mL (<58.9)
[2024-08-28] MEDS ORDERED: KETOROLAC 30 MG/ML INJ ONE (17:15)
--- NOTE | 2024-08-28 17:24 | RAD REPORT ---
EXAMINATION: ONE VIEW CHEST XR CLINICAL INDICATION: CHEST PAIN TECHNIQUE: Frontal chest projection is submitted. Examination is limited by patient positioning and t echnique. COMPARISON: 09/01/2021 FINDINGS: The lungs are well inflated and clear. The heart is normal in size. No displaced fractures identified . IMPRESSION: No acute intrathoracic abnormalities.
--- NOTE | 2024-08-28 17:33 | EDPHYS ---
Physician Documentation [facility] Name: Rebecca Cooley Age: 39 yrs Sex: Female : 1985 Arrival Date: 08/28/2024 Time: 15:53 Bed 25 Private MD: ED Physician Rodriguez Tejeda HPI: 08/28 16:09 This 39 yrs old Female presents to ER via Unassigned with complaints of Chest Pain, rn Numbness Of Hand, Fatigue. 16:09 The patient or guardian reports chest pain that is located primarily in the substernal rn area. The pain does not radiate. Associated signs and symptoms: Pertinent positives: Paresthesia, Pertinent negatives: abdominal pain, cough, dizziness, near syncope, shortness of breath, syncope. The chest pain is described as aching. The chest pain is described as a heaviness. Duration: The patient or guardian reports multiple episodes, that are intermittent. Modifying factors: The symptoms are alleviated by nothing. the symptoms are aggravated by nothing. Severity of pain: At its worst the pain was mild in the emergency department the pain is unchanged. The patient has experienced similar episodes in the past. Patient reports substernal chest pain, nonradiating, not associated with shortness of breath or cough. No hemoptysis. No history of DVT or PE. No trauma. No recent illness. No fever. Reports similar to previous episodes of anxiety and has had chest pain with her anxiety before, takes Xanax and buspirone, did not resolve symptoms so came in for evaluation.. 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 - Family history:: not pertinent. - Social history:: Smoking status: Patient denies any tobacco usage or history of. - Hospitalizations: : No recent hospitalization is reported. ROS: 16:09 Constitutional: Negative for fever, chills, and weight loss, Cardiovascular: Positive rn for chest pain Respiratory: Negative for shortness of breath, cough, wheezing, and pleuritic chest pain, Abdomen/GI: Negative for abdominal pain, nausea, vomiting, diarrhea, and constipation, Back: Negative for injury and pain, MS/Extremity: Negative for injury and deformity, Skin: Negative for injury, rash, and discoloration, Neuro: Negative for headache, weakness, and seizure, Exam: 16:09 Constitutional: This is a well developed, well nourished patient who is awake, alert, rn appears anxious Cardiovascular: Regular rate and rhythm. No pulse deficits. Respiratory: No increased work of breathing, no retractions or nasal flaring. Abdomen/GI: Soft, non-tender Skin: Warm, dry MS/ Extremity: Pulses equal, no cyanosis. Neurovascular intact. Full, normal range of motion. Equal circumference. Neuro: Awake and alert, GCS 15 16:25 ECG was reviewed by the Attending Physician. rn Vital Signs: 16:05 BP 161 / 10; Pulse 93; Resp 16; Pulse Ox 100% ; me1 16:11 BP 161 / 108; Pulse 94; Resp 18; Temp 98.1; Pulse Ox 100% ; Weight 51.26 kg; Height 5 ap3 ft. 2 in. ; Pain 7/10; 17:00 BP 156 / 99; Pulse 84; Resp 20; Pulse Ox 100% ; me1 17:30 BP 142 / 96; Pulse 88; Resp 20; Temp 98.2; Pulse Ox 100% ; me1 16:11 Body Mass Index 20.67 (51.26 kg, 157.48 cm) ap3 16:11 Pain Scale: Adult ap3 MDM: 16:00 Medical Screening Exam initiated rn 17:30 Differential diagnosis: acute pericarditis, anxiety, chest wall pain, costochondritis, rn gastroesophageal reflux disease (GERD), pleurisy, pneumothorax. HEART Score: History: Slightly Suspicious (0), ECG: Normal (0), Age: < or = 45 years (0), Risk Factors: No Risk Factors Known (0), Troponin: < or = 1 x Normal Limit (0), Total Score = 0. Data reviewed: vital signs, nurses notes, lab test result(s), EKG, radiologic studies, plain films, and as a result, I will discharge patient. Counseling: I had a detailed discussion with the patient and/or guardian regarding the historical points, exam findings, and any diagnostic results supporting the discharge/admit diagnosis, lab results, radiology results, the need for outpatient follow up, to return to the emergency department if symptoms worsen or persist or if there are any questions or concerns that arise at home. Response to treatment: the patient's symptoms have mildly improved after treatment, and as a result, I will discharge patient. Special discussion: Based on the patient's history, exam, and Dx evaluation, there is no indication for emergent intervention or inpatient Tx. It is understood by the patient/guardian that if the Sx's persist or worsen they need to return immediately for re-evaluation. I discussed with the patient/guardian in detail that at this point there is no indication for admission to the hospital. It is understood, however, that if the symptoms persist or worsen the patient needs to return immediately for re-evaluation. ED course: No acute findings and workup. Chest x-ray images negative for pneumonia or pneumothorax per my interpretation. Troponin negative with ECG normal. Will discharge home with return precautions and will follow-up with her psychiatrist for medication management.. 08/28 16:08 Order name: Basic Metabolic Panel; Complete Time: 08/28 16:08 Order name: CBC with Diff; Complete Time: 08/28 16:08 Order name: NT PRO-BNP; Complete Time: 08/28 16:08 Order name: Troponin HS; Complete Time: 08/28 16:08 Order name: Test, Urine; Complete Time: 08/28 16:08 Order name: Urinalysis w/ reflexes; Complete Time: 08/28 16:08 Order name: XRAY Chest (1 view); Complete Time: 17:29 08/28 16:08 Order name: Cardiac monitoring; Complete Time: 08/28 16:08 Order name: EKG - Nurse/Tech; Complete Time: 08/28 16:08 Order name: IV Saline Lock; Complete Time: 08/28 16:08 Order name: Labs collected and sent; Complete Time: 08/28 16:08 Order name: O2 Per Protocol; Complete Time: 08/28 16:08 Order name: O2 Sat Monitoring; Complete Time: : EC:25 Rate is 89 beats/min. Rhythm is regular. QRS [place] is Normal. [place] interval is normal. QRS rn interval is normal. QT interval is normal. No Q waves. T waves are Normal. No ST changes noted. Clinical impression: Normal ECG. Interpreted by me. Reviewed by me. Administered Medications: 16:33 Drug: Diazepam PO 2 mg PO once Route: PO; me1 17:12 Follow up: Response: No adverse reaction; Anxiety decreased me1 17:16 Drug: Ketorolac IVP 30 mg IVP once Route: IVP; Site: left antecubital; me1 17:50 Follow up: Response: No adverse reaction; Pain is decreased me1 Disposition Summary: 08/28/24 17:32 Discharge Ordered Notes: Location: Home rn Problem: new rn Symptoms: have improved rn Condition: Stable rn Diagnosis - Chest pain, unspecified rn - Anxiety disorder, unspecified rn Followup: rn - With: Private Physician - When: As needed - Reason: Recheck today's complaints, Re-evaluation by your physician Discharge Instructions: - Discharge Summary Sheet rn - Nonspecific Chest Pain, Adult rn - Managing Anxiety, Adult rn Forms: - Medication Reconciliation Form rn - Antibiotic government relations director - Prescription Opioid Use rn - Patient Portal Instructions rn - Leadership Thank You Letter rn Signatures: Dispatcher [employer] [facility] Rodriguez Tejeda MD MD rn Prokisch, Amanda, RN RN ap3 Samantha Goff, RN RN me1 Corrections: (The following items were deleted from the chart) 16:08 16:08 Chest Single View+RAD.RAD.BRZ ordered. [facility] 16:09 16:08 Test, Urine+UC.LAB.BRZ ordered. [facility] 16:09 16:08 Urinalysis+U.LAB.BRZ ordered. [facility] 16:10 16:09 Constitutional: Negative for fever, chills, and weight loss, Cardiovascular: rn Positive for chest pain Respiratory: Negative for shortness of breath, cough, wheezing, and pleuritic chest pain, Abdomen/GI: Negative for abdominal pain, nausea, vomiting, diarrhea, and constipation, Back: Negative for injury and pain, MS/Extremity: Negative for injury and deformity, Skin: Negative for injury, rash, and discoloration, Neuro: Negative for headache, weakness, numbness, tingling, and seizure, rn
--- NOTE | 2024-08-28 17:33 | ER ---
Nurse's Notes [facility] Name: Rebecca Cooley Age: 39 yrs Sex: Female : 1985 Arrival Date: 08/28/2024 Time: 15:53 Bed 25 Private MD: Diagnosis: Chest pain, unspecified;Anxiety disorder, unspecified Presentation: 08/28 16:11 Chief complaint: Patient states: she has been having intermittent chest pain since ap3 Monday08/25/24. patient also complains of fatigue, and some bilateral hand tingling. patient currently rates her pain as a 7/10 on the pain scale. Coronavirus screen: At this time, the client does not indicate any symptoms associated with coronavirus-19. Ebola Screen: No symptoms or risks identified at this time. Initial Sepsis Screen: Does the patient meet any 2 criteria? No. Patient's initial sepsis screen is negative. Does the patient have a suspected source of infection? No. Patient's initial sepsis screen is negative. Risk Assessment: Do you want to hurt yourself or someone else? Patient reports no desire to harm self or others. Onset of symptoms was August 25, 2024. 16:11 Method Of Arrival: Ambulatory ap3 16:11 Acuity: JYOTI 2 ap3 Triage Assessment: 16:17 General: Appears comfortable, Behavior is anxious. Pain: Complains of pain in chest ap3 Pain currently is 7 out of 10 on a pain scale. Neuro: Level of Consciousness is awake, alert, obeys commands, Oriented to person, place, time, situation. Cardiovascular: Patient's skin is warm and dry. Respiratory: Airway is patent Respiratory effort is even, unlabored, Respiratory pattern is regular, symmetrical. 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 - Family history:: not pertinent. - Social history:: Smoking status: Patient denies any tobacco usage or history of. - Hospitalizations: : No recent hospitalization is reported. Screenin:18 [facility] ED Fall Risk Assessment (Adult) History of falling in the last 3 months, ap3 including since admission No falls in past 3 months (0 pts) Confusion or Disorientation No (0 pts) Intoxicated or Sedated No (0 pts) Impaired Gait No (0 pts) Mobility Assist Device Used No (0 pt) Altered Elimination No (0 pt) Score/Fall Risk Level 0 - 2 = Low Risk Oriented to surroundings, Maintained a safe environment, Educated pt \T\ family on fall prevention, incl call for assistance when getting out of bed, Assessed \T\ reinforced patient's understanding of fall precautions, Hourly rounding (assess needs \T\ fall precautionary measures) done, Used ambulatory aids as needed (educated on \T\ assisted with). Abuse screen: Denies threats or abuse. Nutritional screening: No deficits noted. Tuberculosis screening: No symptoms or risk factors identified. Assessment: 16:47 General: Appears uncomfortable, well groomed, well developed, well nourished, Behavior me1 is cooperative, appropriate for age, anxious, Reports she has been having intermittent chest pain since Monday08/25/24. patient also complains of fatigue, and some bilateral hand tingling. patient currently rates her pain as a 7/10 on the pain scale. Pain: Complains of pain in chest Pain does not radiate. Pain currently is 7 out of 10 on a pain scale. Quality of pain is described as heavy, Pain began 2-3 days ago. Is intermittent. Neuro: Level of Consciousness is awake, alert, obeys commands, Oriented to person, place, time, situation, Appropriate for age. Neuro: Reports numbness in right hand and left hand. Cardiovascular: Reports chest pain, Patient's skin is warm and dry. Respiratory: Airway is patent Respiratory effort is even, unlabored, Respiratory pattern is regular, symmetrical. GI: No signs and/or symptoms were reported involving the gastrointestinal system. : No signs and/or symptoms were reported regarding the genitourinary system. EENT: No signs and/or symptoms were reported regarding the EENT system. Derm: Skin is intact, is healthy with good turgor, Skin is pink, warm \T\ dry. Musculoskeletal: Reports numbness in right hand and left hand. Vital Signs: 16:05 BP 161 / 10; Pulse 93; Resp 16; Pulse Ox 100% ; me1 16:11 BP 161 / 108; Pulse 94; Resp 18; Temp 98.1; Pulse Ox 100% ; Weight 51.26 kg; Height 5 ap3 ft. 2 in. ; Pain 7/10; 17:00 BP 156 / 99; Pulse 84; Resp 20; Pulse Ox 100% ; me1 17:30 BP 142 / 96; Pulse 88; Resp 20; Temp 98.2; Pulse Ox 100% ; me1 16:11 Body Mass Index 20.67 (51.26 kg, 157.48 cm) ap3 16:11 Pain Scale: Adult ap3 ED Course: 15:56 Patient arrived in ED. cj3 16:00 Rodriguez Tejeda MD is Attending Physician. rn 16:11 EKG done, by ED staff, reviewed by Rodriguez Tejeda MD. ap3 16:15 Triage completed. ap3 16:17 Samantha Goff, VASYL is Primary Nurse. me1 16:18 Arm band placed on right wrist. ap3 16:19 Patient maintains SpO2 saturation greater than 95% on room air. ap3 16:30 Urinalysis w/ reflexes Sent. me1 16:30 Test, Urine Sent. me1 16:30 Basic Metabolic Panel Sent. me1 16:30 CBC with Diff Sent. me1 16:30 NT PRO-BNP Sent. me1 16:30 Troponin HS Sent. me1 16:30 Initial lab(s) drawn, by wi, sent to lab. Urine collected: clean catch specimen, clear. me1 Inserted saline lock: 22 gauge in left antecubital area, using aseptic technique. 16:47 No provider procedures requiring assistance completed. me1 16:47 Patient has correct armband on for positive identification. Bed in low position. Call me1 light in reach. Side rails up X 1. Provided Education on: POC. Verbalized understanding. Client placed on continuous cardiac and pulse oximetry monitoring. NIBP monitoring applied. 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 Pulse ox on. NIBP on. 17:20 XRAY Chest (1 view) In Process Unspecified. EDMS 17:55 IV discontinued, intact, bleeding controlled, No redness/swelling at site. Pressure me1 dressing applied. Administered Medications: 16:33 Drug: Diazepam PO 2 mg PO once Route: PO; me1 17:12 Follow up: Response: No adverse reaction; Anxiety decreased me1 17:16 Drug: Ketorolac IVP 30 mg IVP once Route: IVP; Site: left antecubital; me1 17:50 Follow up: Response: No adverse reaction; Pain is decreased me1 Medication: 16:47 VIS not applicable for this client. me1 Outcome: 17:32 Discharge ordered by . rn 17:55 Discharged to home ambulatory, with family, wi1 17:55 Condition: stable 17:55 Discharge instructions given to patient, family, Instructed on discharge instructions, follow up and referral plans. Demonstrated understanding of instructions, follow-up care, 17:55 Patient left the ED. me1 Signatures: Dispatcher [employer] EDRodriguez Aceves MD MD rn Prokisch, Isadora RN RN ap3 Samantha Goff RN RN me1 Aisha Krishna 3 Corrections: (The following items were deleted from the chart) 16:18 16:11 Chief complaint: Patient states: she has been having intermittent chest pain me1 since Monday08/25/24. patient also complains of fatigue, and some bilateral hand tingling. patient currently rates her pain as a 7/10 on the pain scale ap3 16:47 16:11 Chief complaint: Patient states: she has been having intermittent chest pain me1 since Monday08/25/24. patient also complains of fatigue, and some bilateral hand tingling. patient currently rates her pain as a 7/10 on the pain scale me1
[2024-08-28 18:14] VITALS: O2SAT 100
[2024-08-28 18:19] VITALS: BP 142/96; TEMP 98.2
--- NOTE | 2024-08-29 16:46 | EKG ---
Test Date: 2024-08-28 Test Time: 16:08:22 Box Tender: ALP MEASUREMENT RESULTS: Intervals: Rate: 89 SD: 130 QRSD: 82 QT: 362 QTc: 440 [place]: P: 76 SD: 130 QRS: 73 T: 63 INTERPRETIVE STATEMENTS: Normal sinus rhythm Normal ECG Compared to ECG 09/01/2021 13:25:05 No significant changes Electronically Signed On 08-29-24 16:43:43 TELETYPEWRITER OPERATOR by Chadd Zimmer
== END 2024-08-28 17:55 | disposition home or self-care (01) ==
LOC: ER 15:53
DX: R07.9 Chest pain, unspecified (principal); F41.9 Anxiety disorder, unspecified
CPT/HCPCS: 36415; 71045; 80048; 81001; 81025; 83880; 84484; 85025; 93005; 96374; 99285